=== PATIENT | female | born 1980 | race Caucasian/White ===

== ENCOUNTER 2016-07-24 17:12 | Emergency (ER) | payer BC, MEDICAID ==
--- NOTE | 2016-07-24 18:43 | RAD ---
INDICATION: Left ankle injury. TECHNIQUE: 3 views of the left ankle were obtained. FINDINGS: Soft tissue swelling is noted along the anterolateral aspect of the ankle. No fracture is seen. Joint spaces appear maintained. IMPRESSION: SOFT TISSUE SWELLING, NO FRACTURE IS SEEN.
--- NOTE | 2016-07-24 19:47 | ED ---
Lower Extremity - HPI Summary HPI Summary: PATIENT WITH A HISTORY OF SARCOIDOSIS PRESENTS TO ED WITH CC OF LEFT ANKLE PAIN AFTER MISSING A STEP AND ROLLING ANKLE. SHE DENIES HITTING HER HEAD OR LOC. SHE STATES SHE HEARD SEVERAL STRANGE SOUNDS AND FELT LIKE IT BROKE. SHE HAS NEVER INJURED THE ANKLE BEFORE. THE PAIN IS DISCRETE AT THE LEFT LATERAL ANKLE OVER THE ATFL AND RADIATES UP 2-3 INCHES ABOVE THE ANKLE JOINT. DENIES OTHER LOWER EXTREMITY AND KNEE PAIN. SHE NOTES SOME NUMBNESS AND TINGLING SINCE THE INJURY IN THE TOES STATING ITS A "SLIGHT DECREASE IN FEELING." SHE STATES SHE IS UNABLE TO TAKE ASPIRIN, NSAIDS AND TYLENOL D/T SARCOIDOSIS AND PREVIOUS ANAPHYLACTIC REACTION TO A FLU MEDICATION WHICH CONTAINED ASPIRIN AND WAS THEN TO NEVER HAVE THOSE MEDICATIONS AGAIN. - History of Current Complaint Chief Complaint: EDExtremityLower Stated Complaint: LT ANKLE INJURY Time Seen by Provider: 07/24/16 18:04 Hx Obtained From: Patient Hx Last Menstrual Period: 03/01/15 Mechanism Of Injury: Fall From A Standing Position Onset of Pain: Immediate Onset/Duration: Minutes Severity Initially: Moderate Severity Currently: Moderate Pain Intensity: 8 Pain Scale Used: 0-10 Numeric Timing: Constant Location: Is Discrete @ - ATFL Character Of Pain: Aching Associated Signs And Symptoms: Positive: Swelling Aggravating Factor(s): Standing, Ambulation, Weight Bearing Alleviating Factor(s): Rest Able to Bear Weight: No - Risk Factors Gout Risk Factors: Negative DVT Risk Factors: Negative Septic Arthritis Risk Factor: Negative - Allergies/Home Medications Allergies/Adverse Reactions: Allergies Allergy/AdvReac Type Severity Reaction Status Date / Time Aspirin Allergy Severe Anaphylatic Verified 09/04/14 19:01 Shock Latex Allergy Severe Rash Verified 09/04/14 19:01 NSAIDs Allergy Severe Anaphylatic Verified 09/04/14 19:01 Shock Caffeine AdvReac Severe Diarrhea Verified 09/04/14 19:01 Chocolate AdvReac Severe Diarrhea Verified 09/04/14 19:01 PMH/Surg Hx/FS Hx/Imm Hx Previously Healthy: Yes Endocrine/Hematology History: Denies: Hx Diabetes, Hx Thyroid Disease Cardiovascular History: Reports: Other Cardiovascular Problems/Disorders - SARCOIDOSIS Denies: Hx Hypertension Respiratory History: Reports: Hx Asthma Denies: Hx Chronic Obstructive Pulmonary Disease (COPD) GI History: Denies: Hx Ulcer - Surgical History Surgery Procedure, Year, and Place: breast cysts removed L breast; clips placed on ovarian tubes 2006. October 29 2013 - reversal of tube clips. mediastinoscopy may 2013 - Immunization History Hx Pertussis Vaccination: No Immunizations Up to Date: No Infectious Disease History: No Infectious Disease History: Denies: Hx Clostridium Difficile, Hx Hepatitis, Hx Human Immunodeficiency Virus (HIV), Hx of Known/Suspected MRSA, Hx Shingles, Hx Tuberculosis, History Other Infectious Disease, Traveled Outside the [place] in Last 30 Days - Social History Occupation: Employed Full-time Lives: With Family Alcohol Use: None Hx Substance Use: No Substance Use Type: Reports: None Hx Tobacco Use: No Smoking Status (MU): Former Smoker Do You Chew or Dip Tobacco: No Have You Smoked in the Last Year: No Review of Systems Constitutional: Negative Eyes: Negative Cardiovascular: Negative Respiratory: Negative Positive: no symptoms reported, see HPI Positive: Arthralgia - LEFT ANKLE PAIN Positive: Other - SWELLING Neurological: Negative Psychological: Normal All Other Systems Reviewed And Are Negative: Yes Physical Exam Triage Information Reviewed: Yes Vital Signs On Initial Exam: Initial Vitals Temp Pulse Resp BP Pulse Ox 97.4 F 86 20 144/93 100 07/24/16 17:16 07/24/16 17:16 07/24/16 17:16 07/24/16 17:16 07/24/16 17:16 Vital Signs Reviewed: Yes Appearance: Positive: Well-Appearing, No Pain Distress, Well-Nourished Skin: Positive: Warm, Skin Color Reflects Adequate Perfusion, Other - SWELLING Eyes: Positive: Normal, LALI, Conjunctiva Clear Neck: Positive: Supple, No Lymphadenopathy Respiratory/Lung Sounds: Positive: Clear to Auscultation, Breath Sounds Present Cardiovascular: Positive: Normal, RRR, Pulses are Symmetrical in both Upper and Lower Extremities Musculoskeletal: Positive: Other - Thorough physical exam was performed, focusing on ankle special tests. Pain on palpation over LEFT lateral aspect and superior aspect of ankle over ATFL and deltoid ligaments. No pain on palpation over medial side. Due to patient pain around injury, physical exam was limited. Unable to perform anterior drawer test or talar tilt test d/t pain. Desir test negative. Limited ROM. Dorsiflexion, great toe extension and plantar flexion intact however limited. No pain on palpation over medial or lateral lower extremity. No pain with knee flexion. Pulses intact bilaterally. No temperature change or pallor noted bilaterally. Ecchymosis and swelling noted on lateral aspect. No lesion or disruption of skin is seen. Unable to bear weight. Neurological: Positive: Normal, Sensory/Motor Intact Psychiatric: Positive: Normal AVPU Assessment: Alert Diagnostics - Vital Signs Vital Signs Temp Pulse Resp BP Pulse Ox 07/24/16 18:12 98.2 F 89 18 136/90 100 07/24/16 17:16 97.4 F 86 20 144/93 100 - Laboratory Lab Statement: Any lab studies that have been ordered have been reviewed, and results considered in the medical decision making process. Lower Extremity Course/Dx - Course Course Of Treatment: Based on [place] [facility] Rules, patient sent to imaging. Xray negative for fracture or other acute findings. Soft tissue swelling noted over the lateral aspect of the ankle. Medial and lateral distal lower extremity without pain and x-rays show no widening of the ankle joint regarding low suspicion for Maisonneuve fx. Ankle was valentina wrapped to patient comfort to allow for immobilization for this period of time. Crutches given. Patient given orthopedic follow up in 5-7 days. Return precautions given. Educated patient regarding ankle injuries and healing time and the possibility of further evaluation and imaging as orthopedist sees fit. Note given to return to work with restrictions. Patient will follow up with Dr. Britton d/t her preference of physician. She is unable to take NSAIDS, TYLENOL AND ASPIRIN d/t allergies and sarcoidosis. Patient encouraged to ice often. - Diagnoses Differential Diagnosis/HQI/PQRI: Positive: Fracture (Closed), Sprain, Strain, Tendonitis Provider Diagnoses: Sprained ankle Discharge - Discharge Plan Condition: Stable Disposition: HOME Patient Education Materials: Ankle Sprain (ED) Forms: *Work Release Referrals: Evan Haji MD [Primary Care Provider] - Rosanne Britton MD [Medical Doctor] - Additional Instructions: Crutches for ambulation given. Ibuprofen 600mg three times daily with meals for pain. Follow up with orthopedic physician in 5-7 days. If numbness, tingling, decreased sensation, increased pain, temperature changes or pallor noted in toes, come back to ER immediately. Protect the area. For your comfort level, do not bear weight, pull or push until you can injury is somewhat healed. This may involve the need for immobilization or crutches for a period of time. Rest the involved area, but not too long. You may need to be off your injury for some time to allow for healing, however excessive immobilization of joints can lead to stiffness and delay healing time. Early mobilization is encouraged if it is pain-free. Ice. Not directly on the skin. Cover with a towel. Apply ice no more than 30 minutes at a time Compression: You may use and keep an valentina wrap bandage over the injury to decrease swelling. Again, this should be limited and be taken off periodically to encourage early range of motion and mobilization. Elevate: Try to elevate the injured area above the heart whenever possible.
[2016-07-24 19:48] VITALS: BP 136/74
== END 2016-07-24 19:47 | disposition home or self-care (01) ==
LOC: ED 17:12
DX: S93.402A Sprain of unspecified ligament of left ankle, initial encounter (principal); M25.572 Pain in left ankle and joints of left foot; X58.XXXA Exposure to other specified factors, initial encounter; Y93.9 Activity, unspecified; Y92.9 Unspecified place or not applicable
CPT/HCPCS: 99282

== ENCOUNTER 2016-09-22 13:36 | Emergency (ER) | payer BC, MEDICAID ==
[2016-09-22 14:12] VITALS: BP 120/81
--- NOTE | 2016-09-22 14:41 | UC ---
Respiratory Complaint HPI - History of Current Complaint Chief Complaint: UCRespiratory Stated Complaint: SINUS ISSUE Time Seen by Provider: 09/22/16 14:21 Hx Obtained From: Patient Hx Last Menstrual Period: 09/18/16 ?: No Onset/Duration: Gradual Onset - has had allergy symps for 2 weeks , over past 3 days her sinuses have started to feel sore, today facial pressure is really bad and she is blowing out thick dark yellow mucous Severity Initially: Mild Severity Currently: Moderate Aggravating Factors: Recumbent Position - diff to sleep Associated Signs And Symptoms: Positive: Nasal Congestion, Sinus Discomfort - Allergies/Home Medications Allergies/Adverse Reactions: Allergies Allergy/AdvReac Type Severity Reaction Status Date / Time Aspirin Allergy Severe Anaphylatic Verified 09/04/14 19:01 Shock Latex Allergy Severe Rash Verified 09/04/14 19:01 NSAIDs Allergy Severe Anaphylatic Verified 09/04/14 19:01 Shock Caffeine AdvReac Severe Diarrhea Verified 09/04/14 19:01 Chocolate AdvReac Severe Diarrhea Verified 09/04/14 19:01 PMH/Surg Hx/FS Hx/Imm Hx Previously Healthy: Yes - Surgical History Surgical History: Yes Surgery Procedure, Year, and Place: breast cysts removed L breast; clips placed on ovarian tubes 2006. October 29 2013 - reversal of tube clips. mediastinoscopy may 2013 - Family History Known Family History: Positive: None - Social History Occupation: Employed Part-time Lives: With Family Alcohol Use: None Substance Use Type: None Smoking Status (MU): Former Smoker Have You Smoked in the Last Year: No When Did the Patient Quit Smoking/Using Tobacco: 9 YEARS AGO - Immunization History Most Recent Influenza Vaccination: fall 2012 Most Recent Tetanus Shot: 02/22/14 Most Recent Pneumonia Vaccination: none Review of Systems Constitutional: Negative Skin: Negative ENT: Sinus Congestion, Sinus Pain/Tenderness Respiratory: Negative Cardiovascular: Negative Neurovascular: Negative Musculoskeletal: Negative Neurological: Negative Psychological: Negative All Other Systems Reviewed And Are Negative: Yes Physical Exam Triage Information Reviewed: Yes Appearance: Well-Appearing, No Pain Distress, Well-Nourished Vital Signs: Initial Vital Signs Temp 98.1 F 09/22/16 14:10 Pulse 96 09/22/16 14:10 Resp 16 09/22/16 14:10 BP 120/81 09/22/16 14:10 Pulse Ox 99 09/22/16 14:10 Vital Signs Reviewed: Yes ENT: Positive: Pharyngeal erythema, Nasal congestion, Nasal drainage, TMs normal , Other: - thick white PND Respiratory Exam: Normal Cardiovascular Exam: Normal Neurological Exam: Normal Psychological Exam: Normal Skin Exam: Normal UC Diagnostic Evaluation - Laboratory O2 Sat by Pulse Oximetry: 99 Respiratory Course/Dx - Differential Dx/Diagnosis Differential Diagnosis/HQI/PQRI: Sinusitis, Other - URI Provider Diagnoses: sinusitis Discharge - Discharge Plan Condition: Good Disposition: HOME Prescriptions: Cefdinir [Cefdinir 300 MG CAP] 300 mg PO BID #20 cap Patient Education Materials: Sinusitis (ED) Referrals: Evan Haji MD [Primary Care Provider] - 2 Days (recheck if no better) Additional Instructions: drink plenty of fluids take antibiotic as prescribed ibuprofen over the counter as needed for pain
== END 2016-09-22 14:53 | disposition home or self-care (01) ==
LOC: UCEAST 13:36
DX: J32.9 Chronic sinusitis, unspecified (principal); Z88.6 Allergy status to analgesic agent; Z91.040 Latex allergy status; Z87.891 Personal history of nicotine dependence
CPT/HCPCS: 99212; G0463

== ENCOUNTER 2017-03-28 07:44 | Emergency (ER) | payer BC, MEDICAID ==
[2017-03-28 07:54] VITALS: BP 139/90
--- NOTE | 2017-03-28 09:25 | UC ---
Migel Wright Angela, scribed for Kait Espana MD on 03/28/17 at 0801 . General HPI - HPI Summary HPI Summary: This pt is a 36 y/o female presenting to [facility] c/o sinus congestion and lower jaw pain since 03/24/17. Pt additionally reports ear ache, pressure around her right clavicle, right sided neck tenderness, and down the middle of the posterior neck. Pt woke up this morning with a lot of nasal discharge. Denies epistaxis. Pt reports joint pain, not increased from baseline due to sarcoidosis. Denies nausea, vomiting, diarrhea. Last time she had a sinus infection was this past year. She states she usually has sinus infections in the winter time. Allergies to NSAIDs. Has not been on antibiotics recently. - History of Current Complaint Chief Complaint: UCGeneralIllness Stated Complaint: SINUS PRESSURE, CHEST PRESSURE, EAR PAIN Time Seen by Provider: 03/28/17 07:55 Hx Obtained From: Patient Hx Last Menstrual Period: 03/18/17 Onset/Duration: Lasting Days, Still Present Timing: Constant Current Severity: Moderate Associated Signs & Symptoms: Positive: Other - POS: nasal discharge, sinus congestion, lower jaw pain, ear ache, right sided neck tenderness, pain down the middle of the posterior neck. NEG: epistaxis. Negative: Cough, Diarrhea, Nausea, Vomiting - Allergy/Home Medications Allergies/Adverse Reactions: Allergies Allergy/AdvReac Type Severity Reaction Status Date / Time Aspirin Allergy Severe Anaphylatic Verified 03/28/17 07:54 Shock Latex Allergy Severe Rash Verified 03/28/17 07:54 NSAIDs Allergy Severe Anaphylatic Verified 03/28/17 07:54 Shock Caffeine AdvReac Severe Diarrhea Verified 03/28/17 07:54 Chocolate AdvReac Severe Diarrhea Verified 03/28/17 07:54 Home Medications: Home Medications Hydroxychloroquine TAB* [Plaquenil TAB*] 200 mg PO BID 03/28/17 [History Confirmed 03/28/17] PMH/Surg Hx/FS Hx/Imm Hx - Additional Past Medical History Additional PMH: PMHx: sarcoidosis Previously Healthy: Yes Other Endocrine History: DENIES: diabetes Respiratory History: Asthma GI/ History: Other - IBS Other GI/ History: IBS - Surgical History Surgical History: Yes Surgery Procedure, Year, and Place: breast cysts removed L breast; clips placed on ovarian tubes 2006. October 29 2013 - reversal of tube clips. mediastinoscopy may 2013 - Family History Known Family History: Positive: Hypertension - mother Negative: Diabetes - Social History Alcohol Use: Occasionally Substance Use Type: None Smoking Status (MU): Former Smoker Have You Smoked in the Last Year: No When Did the Patient Quit Smoking/Using Tobacco: 9 YEARS AGO - Immunization History Most Recent Influenza Vaccination: Fall 2016 Most Recent Tetanus Shot: 02/22/14 Most Recent Pneumonia Vaccination: none Review of Systems Constitutional: Negative Skin: Negative Eyes: Negative ENT: Ear Ache, Nasal Discharge, Sinus Congestion, Other - NEG: Respiratory: Negative Cardiovascular: Negative Gastrointestinal: Negative Motor: Negative Neurovascular: Negative Musculoskeletal: Other: - lower jaw pain, right sided neck tenderness, and tenderness down the middle of the posterior neck. Neurological: Negative Psychological: Negative All Other Systems Reviewed And Are Negative: Yes Physical Exam Triage Information Reviewed: Yes Appearance: Well-Nourished Vital Signs: Initial Vital Signs Temp 97.9 F 03/28/17 07:46 Pulse 91 03/28/17 07:46 Resp 18 03/28/17 07:46 BP 139/90 03/28/17 07:46 Pulse Ox 100 03/28/17 07:46 Vital Signs Reviewed: Yes Eye Exam: Normal ENT: Positive: Pharyngeal erythema - mild post redness, no sores, Nasal congestion, TM dull - dull au, not red. Eac's ok., Other - nasal mucosa is erythematous, swollen Dental Exam: Other - c/o pain radiating to teeth. Neck: Positive: Supple, Nontender, Other: - enlarged thyroid (pt reports that this is being evaluated by pcp) Respiratory Exam: Normal Respiratory: Positive: Chest non-tender, Lungs clear, Normal breath sounds, No respiratory distress, No accessory muscle use Cardiovascular Exam: Normal Cardiovascular: Positive: RRR, No Murmur, Pulses Normal, Brisk Capillary Refill , Other: - heart rate regular, good general skin colo, good capillary refill Abdominal Exam: Normal Abdomen Description: Positive: Nontender, Soft Bowel Sounds: Positive: Present Musculoskeletal Exam: Normal Musculoskeletal: Positive: Strength Intact Neurological Exam: Normal, Other - nonfocal, grossly intact Psychological Exam: Normal - conversing easily and appropriately Skin Exam: Normal - no visible or reported rash Course/Dx - Course Course Of Treatment: Reviewed medications and recent medical hx with pt. No recent abx. No abx allergies / intolerances. Rx - augmentin. Will restart probiotic. Rx diflucan as needed vag yeast infection. + work note. Questions as posed answered to the best of my ability. - Differential Dx - Multi-Symptom Provider Diagnoses: acute sinusitis Discharge - Discharge Plan Condition: Stable Disposition: HOME Prescriptions: Amoxicillin/Clavulanate TAB* [Augmentin TAB 875*] 875 mg PO BID #20 tab Fluconazole [Diflucan 150 MG (NF)] 150 mg PO DAILY #2 tab Patient Education Materials: Amoxicillin/Clavulanate Potassium (By mouth), Sinusitis (ED) Forms: *Work Release Referrals: Evan Haji MD [Primary Care Provider] - Additional Instructions: Your blood pressure was elevated during today's visit, 139/90. Please follow up with your primary care provider in 1-2 weeks. Please follow up with your primary care provider in 1-2 weeks. Seek medical attention for worse or new problems in the meantime. Restart your probiotic, especially while taking antibiotic. The documentation as recorded by the Migel diaz Angela accurately reflects the service I personally performed and the decisions made by me, Kait Espana MD.
== END 2017-03-28 08:15 | disposition home or self-care (01) ==
LOC: UCEAST 07:44
DX: J01.90 Acute sinusitis, unspecified (principal); M25.50 Pain in unspecified joint; D86.9 Sarcoidosis, unspecified; Z88.8 Allergy status to other drugs, medicaments and biological substances; Z88.6 Allergy status to analgesic agent; Z91.040 Latex allergy status; Z91.018 Allergy to other foods; Z87.891 Personal history of nicotine dependence
CPT/HCPCS: 99212; G0463

== ENCOUNTER 2017-05-13 20:19 | Emergency (ER) | payer BC, MEDICAID ==
[2017-05-13 20:35] VITALS: BP 135/96
[2017-05-13] MEDS ORDERED: Acetaminophen TAB* 325 MG PO ONE (21:05)
--- NOTE | 2017-05-13 22:10 | UC ---
Radha Wright Gabriel, scribed for Srinivas Curiel MD on 05/13/17 at 2107 . Throat Pain/Nasal Vinay HPI - HPI Summary HPI Summary: This patient is a 36 year old F presenting to [facility] with a chief complaint of a sore throat since 05-11-17. The patient rates the pain 6/10 in severity. Patient reports congestion, ear pain, neck pain, chills, and myalgia. Patient denies diarrhea and urinary symptoms. Positive exposure to flu. - History of Current Complaint Chief Complaint: UCGeneralIllness Stated Complaint: SORE THROAT Time Seen by Provider: 05/13/17 20:59 Hx Obtained From: Patient Hx Last Menstrual Period: 03/18/17 Onset/Duration: Lasting Days, Still Present Severity: Moderate Pain Intensity: 6 Pain Scale Used: 0-10 Numeric Associated Signs & Symptoms: Positive: Other - congestion, ear pain, neck pain, chills, and myalgia.. Negative: Fever - Allergies/Home Medications Allergies/Adverse Reactions: Allergies Allergy/AdvReac Type Severity Reaction Status Date / Time NSAIDS (Non-Steroidal Allergy Anaphylatic Verified 05/13/17 20:36 Anti-Inflamma Shock Home Medications: Home Medications Hydroxychloroquine TAB* [Plaquenil TAB*] 200 mg PO BID 05/13/17 [History Confirmed 05/13/17] PMH/Surg Hx/FS Hx/Imm Hx Other History Of: Negative For: HIV, Hepatitis B - Surgical History Surgical History: Yes Surgery Procedure, Year, and Place: breast cysts removed L breast; clips placed on ovarian tubes 2006. October 29 2013 - reversal of tube clips. mediastinoscopy may 2013 - Family History Known Family History: Positive: Hypertension - mother Negative: Diabetes, Respiratory Disease, Seizure Disorder - Social History Lives: With Family Alcohol Use: Occasionally Substance Use Type: None Smoking Status (MU): Former Smoker Have You Smoked in the Last Year: No When Did the Patient Quit Smoking/Using Tobacco: 9 YEARS AGO - Immunization History Most Recent Influenza Vaccination: Fall 2016 Most Recent Tetanus Shot: 02/22/14 Most Recent Pneumonia Vaccination: none Review of Systems Constitutional: Chills ENT: Sore Throat, Ear Ache, Sinus Congestion Musculoskeletal: Myalgia, Other: - neck pain All Other Systems Reviewed And Are Negative: Yes Physical Exam Triage Information Reviewed: Yes Vital Signs: Initial Vital Signs Temp 97.5 F 05/13/17 20:31 Pulse 86 05/13/17 20:31 Resp 18 05/13/17 20:31 BP 135/96 05/13/17 20:31 Pulse Ox 100 05/13/17 20:31 Vital Signs Reviewed: Yes - Additional Comments General: mildly ill appearing, no pain distress Skin: warm, color reflects adequate perfusion, dry Head: normal Eyes: EOMI, LALI ENT: Posterior pharynx erythema Neck: supple, nontender Respiratory: CTA, breath sounds present Cardiovascular: RRR Abdomen: soft, nontender Bowel: present Musculoskeletal: normal, strength/ROM intact Neurological: normal, sensory/motor intact, A&O x3 Psychological: affect/mood appropriate Throat Pain/Nasal Course/Dx - Course Course Of Treatment: DISCUSSED RESULTS WITH PATIENT; SYMPTOMATIC TREATMENT AT THIS TIME. F/U PMD; RECHECKED IF WORSE. Assessment/Plan: Allergies noted. Medications reviewed. BP noted and advised to follow up with PCP. - Differential Dx/Diagnosis Provider Diagnoses: VIRAL ILLNESS. Elevated blood pressure without history of hypertension. Discharge - Discharge Plan Condition: Stable Disposition: HOME Patient Education Materials: Viral Syndrome (ED) Referrals: Evan Haji MD [Primary Care Provider] - Additional Instructions: FOLLOW UP WITH YOUR DOCTOR. GET RECHECKED FOR ANY WORSENING OF YOUR CONDITION OR QUESTIONS OR CONCERNS. Your blood pressure was elevated during todays visit; please follow up with your primary care provider within a week for further evaluation. The documentation as recorded by the Radha diaz Gabriel accurately reflects the service I personally performed and the decisions made by me, Srinivas Curiel MD.
== END 2017-05-13 22:31 | disposition home or self-care (01) ==
LOC: UCEAST 20:19
DX: B34.9 Viral infection, unspecified (principal); R03.0 Elevated blood-pressure reading, without diagnosis of hypertension; Z20.828 Contact with and (suspected) exposure to other viral communicable diseases; Z87.891 Personal history of nicotine dependence
CPT/HCPCS: 87502; 87651; 99212; A9270-GY; G0463

== ENCOUNTER 2017-07-23 09:12 | Day surgery (SDC) | payer BC, MEDICAID ==
--- NOTE | 2017-07-17 14:39 | HP ---
AMENDED REPORT NOW INCLUDES COSIGNER DESIGNATION PREOPERATIVE HISTORY AND PHYSICAL: DATE OF ADMISSION/SURGERY: 07/23/17 DATE OF OFFICE VISIT/ENCOUNTER: 07/17/17 ATTENDING SURGEON: Rosanne Britton MD * (DICTATED BY MARSHALL MARTINEZ) PROCEDURE: Left wrist de Quervain's release. CHIEF COMPLAINT: Left wrist pain. HISTORY OF PRESENT ILLNESS: This is a 36-year-old female, who works at [employer]. She is complaining of pain in the left wrist that has been ongoing for several years now, she thinks even over 10 years. This pain has gradually gotten markedly worse and is quite bothersome. She did have cortisone injection in the past, which was helpful; however, the symptoms returned. The patient could not take NSAIDs or aspirin. She is interested at this point in pursuing surgical intervention for this problem and has consented to proceed with the left wrist de Quervain's release. PAST MEDICAL HISTORY: 1. Sleep apnea - CPAP. 2. Irritable bowel syndrome. 3. GERD. 4. Sarcoidosis. 5. Polycystic ovaries. PAST SURGICAL HISTORY: 1. Tubal ligation. 2. Tubal ligation reversal. 3. Breast lumpectomy. CURRENT MEDICATIONS: 1. Symbicort 160/4.5 mcg/act 2 puffs twice a day. 2. Turmeric 450 mg 1 tab daily. ALLERGIES: 1. ASPIRIN causes anaphylactic shock. 2. NSAIDs, reaction unknown. 3. LATEX. 4. CAFFEINE. FAMILY MEDICAL HISTORY: Hypertension and high cholesterol. SOCIAL HISTORY: The patient is employed at [employer]. She was a former smoker. She quit about 10 years ago, prior to that she smoked for just a year and a half. She recreational drug use. She does drink alcohol on occasion. REVIEW OF SYSTEMS: General: Negative for fevers, chills, or night sweats. No known anesthesia problems. HEENT: Negative for headache, lightheadedness, or syncopal episodes. Integumentary: Negative for abrasions, lesions, or open wounds. Cardiothoracic: Negative for hypertension, chest pain, palpitations, or edema. Pulmonary: Positive for occasional shortness of breath with exertion related to her sarcoidosis. Negative for chronic cough or COPD. GI: Negative for nausea, vomiting, diarrhea, constipation, or GERD. : Negative for nocturia, urinary frequency, urgency, history of UTIs, and kidney problems. Musculoskeletal: Positive for current complaint. Negative for chronic or intermittent back pain. Neurologic: Negative for paresthesias, numbness, history of seizure, stroke, or epilepsy. Endocrine: Negative for diabetes and thyroid issues. Hematologic: Negative for easy bruising, anemia, excessive bleeding, history of DVT. Infectious Disease: Negative for history of MRSA, hepatitis C, HIV. PHYSICAL EXAMINATION GENERAL: Well-developed, well-nourished, 36-year-old female, in no acute distress. VITAL SIGNS: Height 5 feet 4 inches, weight 206 pounds, pulse rate 102, and blood pressure 128/62. HEENT: Normocephalic and atraumatic. Pupils are equal, round, and reactive to light and accommodation. Extraocular movements are intact. Throat is clear. NECK: Supple. No palpable lymph nodes. PULMONARY: Lungs are clear to auscultation bilaterally. No wheezes, rales, or rhonchi. CARDIOVASCULAR: Regular rate and rhythm. S1 and S2. No murmurs, rubs, or gallops. No edema. ABDOMEN: Positive bowel sounds, soft and nontender. NEUROLOGIC: Alert and oriented x3. Cranial nerves II through XII are intact. Sensation is intact to light touch. PERIPHERAL VASCULAR: 2+ radial and ulnar pulses. Negative Chemo test. MUSCULOSKELETAL: On exam of the patient's left wrist, there is a small area of mild swelling over the first dorsal compartment and tenderness to palpation in that area. She has marked tenderness at the radial styloid and a positive Lauren's test. Pain with wrist motion and flexion and extension. She has good motion in her fingers and neurovascular function is intact. IMAGING STUDIES: X-rays, AP, lateral, and oblique, of the left wrist are normal. IMPRESSION: Left wrist de Quervain's tenosynovitis. PLAN: The patient is scheduled to undergo a left wrist de Quervain's release with Dr. Britton on 07/23/17. She will follow up in the office approximately 10 days after surgery for suture removal. A prescription for Ultracet was e- scribed to the patient's pharmacy for postoperative pain management. MARSHALL MARTINEZ [id number]/[facility] #: [id number] [facility]
[~2017-07-23 09:12] MED LIST: Buffered Lidocaine 0.9% SYRIN* 5 ML/SYR SYRINGE INTRADERM ONE; Famotidine TAB* 20 MG ONE; Famotidine TAB* 20 MG PO ONE
[2017-07-23] MEDS ORDERED: Naloxone* 0.4 MG/ML 1 ML VIAL IV PRN (09:24)
[2017-07-23] MEDS ORDERED: PROCHLORPERAZINE INJ 5 MG/ML 2 ML VIAL IV PRN (09:24)
[2017-07-23] MEDS ORDERED: HYDROcodone/ACETAMIN 5-325 MG* 1 TAB PO PRN (09:24)
[2017-07-23] MEDS ORDERED: fentaNYL* 50 MCG/ML 2 ML VIAL (100 MCG VIAL) IV PRN (09:24)
[2017-07-23] MEDS ORDERED: oxyCODONE TAB* 5 MG TAB PO PRN (09:24)
[2017-07-23] MEDS ORDERED: Acetaminophen TAB* 325 MG PO PRN (09:24)
[2017-07-23] MEDS ORDERED: Lidocaine 1% INJ* 10 MG/ML 30 ML SDV ONE (09:37)
[2017-07-23] MEDS ORDERED: Propofol* 10 MG/ML 20 ML BTL IV PUSH ONE (09:53)
[2017-07-23] MEDS ORDERED: Midazolam* 1 MG/ML 5 ML VIAL (5 MG) ONE (09:53)
[2017-07-23] MEDS ORDERED: Lidocaine 2% PF * 5 ML VIAL ONE (09:53)
[2017-07-23] MEDS ORDERED: fentaNYL* 50 MCG/ML 2 ML VIAL (100 MCG VIAL) ONE (09:53)
[2017-07-23 11:51] VITALS: BP 114/83
--- NOTE | 2017-07-23 12:06 | OP ---
CC: Dr. Britton* OPERATIVE REPORT: DATE OF OPERATION: 07/23/17 - BAYLEE DATE OF : 82 SURGEON: Rosanne Britton MD TOOL DRAWING CHECKER: MARSHALL Packer ANESTHESIOLOGIST: Nisreen Montaño MD ANESTHESIA: Local MAC. PRE-OP DIAGNOSIS: Left de Quervain's tenosynovitis. POST-OP DIAGNOSIS: Left de Quervain's tenosynovitis. OPERATIVE PROCEDURE: Left de Quervain's release. INDICATIONS: John is a 36-year-old female, who has a painful tendinitis of her left wrist. She has failed conservative treatment with cortisone injection, presents now for de Quervain's release. ESTIMATED BLOOD LOSS: Zero. TOURNIQUET TIME: About 10 minutes. DESCRIPTION OF PROCEDURE: The patient was brought to the operating room, was given a sedation anesthetic and a local infiltration of 10 cc of 1% plain lidocaine at the radial styloid of her left wrist. Skin of her left hand and forearm was prepped and draped in the usual sterile fashion. The hand and forearm were exsanguinated and the tourniquet elevated to 250 mmHg. A longitudinal incision was made centered at the radial styloid and we dissected through the subcutaneous tissue. Branches of the radial sensory nerve were located and then retracted by the surgical services asst, Katarina Bhatt. The first dorsal compartment was incised longitudinally, completely releasing the APL and EPB tendons, which were in separate compartments. The wound was irrigated and the skin edges were reapproximated with 4-0 nylon suture. The wound was dressed with Xeroform, 4x4, Webril, and an Enrico wrap. The patient tolerated the procedure well and was brought to the recovery room in good condition. [id number]/[facility] #: [id number] [facility]
== END 2017-07-23 11:40 | disposition home or self-care (01) ==
LOC: OREAST 09:12
PROVIDERS: ATTEND Orthopaedic Surgery
DX: M65.4 Radial styloid tenosynovitis [de Quervain] (principal); G47.33 Obstructive sleep apnea (adult) (pediatric); J45.909 Unspecified asthma, uncomplicated; K58.9 Irritable bowel syndrome, unspecified; K21.9 Gastro-esophageal reflux disease without esophagitis; D86.9 Sarcoidosis, unspecified
CPT/HCPCS: 81025; A9270-GY; J2250; J2704; J3010

== ENCOUNTER 2017-08-01 07:34 | Emergency (ER) | payer BC, MEDICAID ==
--- OUTSIDE RECORDS SUMMARY | 2017-08-01 07:44 | XMS REPORT ---
:1980 External Reference #:[id number] Author Organization [facility] Address [address] [address] Phone [phone] Care Team Providers Name Role Phone Evan Haji MD Primary Care Physician Unavailable Payers Type Date Identification Numbers Payment Provider Subscriber Commercial Policy Number: [id number] [employer] John Solorzano Group Number: [id number] [address] [address] PayID: [id number] [place] [address] Medigap Part B Policy Number: [id number] Medicaid John Solorzano Group Name: 1 [address] PayID: [id number] [place] [address] Problems Date Description Provider Status Onset: 06/02/2015 Disturbance in sleep behavior Margie Alfaro MD Active Onset: 06/02/2015 Sarcoidosis Margie Alfaro MD Active Onset: 06/02/2015 Obesity Margie Alfaro MD Active Onset: 06/23/2015 Obstructive sleep apnea syndrome Margie Alfaro MD Active Family History Date Family Member(s) Problem(s) Comments Father due to at age 53 head trauma () Mother Hypertension Siblings 1 sister hypothyroid Siblings 1 Healthy Brother Social History Type Date Description Comments Marital Status Lives With Children 4 children Lives With 2 cats Lives With 1 dog Occupation Currently Working 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 Cigarette Use Former Cigarette Smoker ETOH Use Occasionally consumes alcohol Smoking Patient is a former smoker Recreational Drug Use Denies Drug Use Daily Caffeine Occasional soda Exercise Type/Frequency Exercises regularly Caring for 2 year old Allergies, Adverse Reactions, Alerts Date Description Reaction Status Severity Comments 06/02/2015 Aspirin active 06/02/2015 Latex active 06/02/2015 NSAIDs active 06/02/2015 Caffeine active Medications Medication Date Status Form Strength Qnty SIG Indications Ordering Provider Tramadol Active Tablets 37.5-325mg 15tabs 1 tab by Rosanne Hydrochloride 018 mouth Gunner Britton /Acetaminophe every 4-6 n hours as needed pain Symbicort Active Aerosol 160-4.5mcg/ 2 puff Unknown 016 Act twice a day Turmeric Active Capsules 450mg 1 by Unknown 016 mouth every day One Hx Tablets 27-0.8mg 1 by Unknown Daily 016 - mouth every day 016 Magnesium Hx Capsules 400mg 1 by Unknown 016 - mouth every day 016 Fish Oil Hx Capsules 600mg 1 by Unknown 016 - mouth every day 016 Probiotic Hx Capsules 1 by Unknown 016 - mouth every day 017 Fenugreek Hx Capsules 520mg 1 by Unknown Blood Sugar 016 - mouth Health daily 016 Plaquenil Hx Tablets 200mg 1 by Unknown 000 - mouth every day 017 for 1 week then 2 by mouth daily ongoing Medications Administered in Office Medication Date Status Form Strength Qnty SIG Indications Ordering Provider Depomedrol Administered Injection Rosanne 40MG So Britton M.D. Immunizations CPT Code Status Date Vaccine Lot # [id number] Given 06/02/2015 Influenza Virus 3Yrs & Over Vital Signs Date Vital Result Comment 07/17/2017 Height 64 inches 5'4" Weight 206.00 lb Heart Rate 102 /min BP Systolic 128 mmHg BP Diastolic 62 mmHg Respiratory Rate 16 /min Body Temperature 97.6 F Pain Level 3 BMI (Body Mass Index) 35.4 kg/m2 06/20/2017 Height 64 inches 5'4" Weight 197.00 lb Heart Rate 82 /min BP Systolic Sitting 132 mmHg Lue large cuff BP Diastolic Sitting 84 mmHg Lue large cuff Respiratory Rate 14 /min O2 % BldC Oximetry 98 % On Ra BMI (Body Mass Index) 33.8 kg/m2 12/20/2016 Height 64 inches 5'4" Weight 193.00 lb Heart Rate 101 /min BP Systolic Sitting 120 mmHg BP Diastolic Sitting 72 mmHg Respiratory Rate 16 /min Pain Level 0 O2 % BldC Oximetry 97 % BMI (Body Mass Index) 33.1 kg/m2 11/28/2016 Height 64 inches 5'4" Weight 194.00 lb Heart Rate 80 /min BP Systolic 118 mmHg BP Diastolic 80 mmHg Respiratory Rate 16 /min Pain Level 8 BMI (Body Mass Index) 33.3 kg/m2 08/16/2016 Height 64 inches 5'4" Weight 203.00 lb Heart Rate 77 /min BP Systolic 115 mmHg BP Diastolic 76 mmHg Body Temperature 98.4 F BMI (Body Mass Index) 34.8 kg/m2 07/25/2016 Height 64 inches 5'4" Weight 203.00 lb Heart Rate 102 /min BP Systolic 123 mmHg BP Diastolic 87 mmHg Body Temperature 97.9 F BMI (Body Mass Index) 34.8 kg/m2 04/16/2016 Height 64 inches 5'4" Weight 206.00 lb Heart Rate 84 /min BP Systolic 126 mmHg BP Diastolic 74 mmHg Respiratory Rate 14 /min O2 % BldC Oximetry 99 % BMI (Body Mass Index) 35.4 kg/m2 11/15/2015 Height 64 inches 5'4" Weight 206.00 lb Heart Rate 84 /min BP Systolic 124 mmHg BP Diastolic 68 mmHg Respiratory Rate 14 /min O2 % BldC Oximetry 98 % BMI (Body Mass Index) 35.4 kg/m2 08/15/2015 Height 64 inches 5'4" Weight 202.00 lb Heart Rate 88 /min BP Systolic 110 mmHg BP Diastolic 72 mmHg Respiratory Rate 14 /min O2 % BldC Oximetry 99 % BMI (Body Mass Index) 34.7 kg/m2 06/02/2015 Height 64 inches 5'4" Weight 202.50 lb Heart Rate 90 /min BP Systolic 122 mmHg BP Diastolic 80 mmHg Respiratory Rate 14 /min O2 % BldC Oximetry 99 % BMI (Body Mass Index) 34.8 kg/m2 Neck Circumference in inches 15 Results Description No Information Procedures Date CPT Code Description Status 11/28/2016 99618 Inject Tendon Sheath Or Ligament Aponeurosis Eg Plantar Completed Fascia 09/29/2015 56759 Holter Monitor Review (24 hr)dr rivero & interp Completed only 09/28/2015 87777 ECG Monitor/Recording W/Visual Superimposition Scanning Completed 06/10/2015 33564 Sleep Study Unattended,HRT Rate,Oxygen Sat,Resp Completed Effort/Airflow 04/04/2015 83805 Diffusing Capacity Completed 04/04/2015 63601 Plethysmography Determination Lung Volumes & Per Completed Airway Resist 04/04/2015 48965 Spirometry Incl Graphic Record Completed Encounters Type Date Location Provider CPT E/M Dx Office Visit 06/20/2017 [place] [address] G47.33 1:45p [facility] D86.9 E66.09 Office Visit 12/20/2016 3:15p [place] [address] G47.33 [facility] [employer] D86.9 E66.09 Office Visit 11/28/2016 1:45p [facility] Rosanne Britton 47028 M65.4 Of C.MYisselA. MDenny Office Visit 08/16/2016 2:00p [facility] Rosanne Britton 04991 S93.412D Of C.DeepaA. MDenny Office Visit 07/25/2016 11:15a [facility] Rosanne Britton 67026 S93.412A Of C.M.A. MDenny Office Visit 04/16/2016 1:45p [facility] [place] [address] G47.33 [facility] D86.9 E66.09 Office Visit 11/15/2015 2:30p Pul[facility]ology [place] [address] G47.33 [facility] [employer] D86.9 E66.09 Office Visit 08/15/2015 3:30p Pulmonology [place] [address] G47.33 [facility] [employer] E66.09 Office Visit 06/23/2015 11:30a Pulmonology [place] [address] G47.33 [facility] [employer] E66.09 D86.9 Office Visit 06/02/2015 11:00a [place] [address] G47.9 [facility] [employer] D86.9 E66.09 Plan of Care Future Appointment(s):08/01/2017 2:30 pm - Rosanne Britton M.D. at [facility].07/23/2017 8:00 am - TREMAINE Packer at [facility].07/23/2017 8:00 am - Rosanne Britton M.D. at [facility]..12/26/2017 1:45 pm - Margie Alfaro MD at [facility]07/17/2017 - Katarina Bhatt [id number]-[id number] Radial styloid tenosynovitis [de Quervain]Follow up:Follow up: 10-14 days postop
[2017-08-01 07:48] VITALS: BP 152/100
[2017-08-01] MEDS ORDERED: Albuterol/Ipratropium NEB.SOL* Albuterol 2.5 MG/Ipratropium 0.5 MG 3 ML INH ONE (08:04)
--- NOTE | 2017-08-01 08:22 | UC ---
Migel Wright Angela, scribed for Tricia Ford MD on 08/01/17 at 0805 . General HPI - HPI Summary HPI Summary: This pt is a 36 y/o female presenting to [facility] c/o headache, sinus congestion and pain, rhinorrhea, cough x5 days. She has hx of sarcoidosis affecting her lungs. Pt additionally reports feeling warm, ears popping, wheezing, throat tickle, post nasal discharge, palpitations. Her symptoms are aggravated with exertion and feels SOB. Pt also states that she is unable to bring anything up with coughing and she has lost her voice. Denies fever, nausea, vomiting, rash, chest pain. Denies sick contacts. She has tried prednisone "a long time ago" for asthma and had relief. Allergic to aspirin, NSAIDS, latex. Patients medication reviewed this visit. - History of Current Complaint Chief Complaint: UCGeneralIllness Stated Complaint: HEADACHE LOSS OF VOICE Time Seen by Provider: 08/01/17 07:44 Hx Obtained From: Patient Hx Last Menstrual Period: 2 weeks Onset/Duration: Lasting Days, Still Present Timing: Constant Current Severity: None Pain Intensity: 0 Aggravating: nothing Alleviating: nothing Associated Signs & Symptoms: Positive: Cough, Headache, SOB, Other - POS: feeling warm, discomfort in ears, wheezing, throat tickle, post nasal discharge , palpitations. NEG: rash. Negative: Fever, Nausea, Vomiting - Allergy/Home Medications Allergies/Adverse Reactions: Allergies Allergy/AdvReac Type Severity Reaction Status Date / Time aspirin Allergy ANAPHYLACTI Verified 08/01/17 07:48 C caffeine Allergy STOMACH Verified 08/01/17 07:48 ISSUES latex Allergy SKIN Verified 08/01/17 07:48 BLISTERS AND PEELS NSAIDS (Non-Steroidal Allergy Anaphylatic Verified 08/01/17 07:48 Anti-Inflamma Shock Perfume [Fragrance] Allergy BREATHING Verified 08/01/17 07:48 ISSUES Home Medications: Home Medications Loratadine 1 tab PO DAILY 08/01/17 [History Confirmed 08/01/17] PMH/Surg Hx/FS Hx/Imm Hx - Additional Past Medical History Additional PMH: PMHx: sarcoidosis Previously Healthy: Yes Other Endocrine History: sarcoid Respiratory History: Asthma Other History Of: Negative For: HIV, Hepatitis B - Surgical History Surgical History: Yes Surgery Procedure, Year, and Place: breast cysts removed L breast; clips placed on ovarian tubes 2006. October 29 2013 - reversal of tube clips. mediastinoscopy may 2013. COLONOSCOPY AND EGD - Family History Known Family History: Positive: Hypertension - mother Negative: Diabetes, Respiratory Disease, Seizure Disorder - Social History Occupation: Employed Full-time Lives: With Family Alcohol Use: Occasionally Substance Use Type: None Smoking Status (MU): Former Smoker Amount Used/How Often: 1/2 - 1 PPD X 1.5 YEARS Have You Smoked in the Last Year: No When Did the Patient Quit Smoking/Using Tobacco: 9 YEARS AGO - Immunization History Most Recent Influenza Vaccination: Fall 2016 Most Recent Tetanus Shot: 02/22/14 Most Recent Pneumonia Vaccination: none Review of Systems Constitutional: Other - NEG: fever. POS: feeling warm Skin: Negative Eyes: Negative ENT: Sore Throat, Nasal Discharge, Sinus Congestion, Sinus Pain/Tenderness, Other - POS: ear discomfort Respiratory: Shortness Of Breath, Cough Cardiovascular: Palpitations, Other - DENIES: chest pain Gastrointestinal: Negative Genitourinary: Negative Motor: Negative Neurovascular: Negative Musculoskeletal: Negative Neurological: Headache Psychological: Negative All Other Systems Reviewed And Are Negative: Yes Physical Exam Triage Information Reviewed: Yes Appearance: Well-Appearing, No Pain Distress, Well-Nourished, Other: - congested Vital Signs: Initial Vital Signs Temp 97.7 F 08/01/17 07:42 Pulse 85 08/01/17 07:42 Resp 18 08/01/17 07:42 BP 152/100 08/01/17 07:42 Pulse Ox 100 08/01/17 07:42 Vital Signs Reviewed: Yes Eye Exam: Normal Eyes: Positive: Conjunctiva Clear ENT: Positive: Pharynx normal, Nasal congestion, TMs normal, Sinus tenderness, Uvula midline Dental Exam: Normal Neck exam: Normal Neck: Positive: Supple, Nontender, No Lymphadenopathy Respiratory Exam: Normal Respiratory: Positive: Chest non-tender, No respiratory distress, No accessory muscle use, Wheezing - few scattered wheeze + cough Cardiovascular Exam: Normal Cardiovascular: Positive: RRR, No Murmur, Pulses Normal Abdominal Exam: Normal Abdomen Description: Positive: Nontender, No Organomegaly, Soft Bowel Sounds: Positive: Present Musculoskeletal Exam: Normal Neurological Exam: Normal Neurological: Positive: Alert Psychological Exam: Normal Psychological: Positive: Normal Response To Family Skin Exam: Normal Diagnostics - Radiology Chest XR Xray Interpretation: No Acute Changes - IMPRESSION: No interval change in the appearance of the chest. Dr. Ford has reviewed this radiology report. Radiology Interpretation Completed By: Radiologist Re-Evaluation - Re-Evaluation First Eval Re-Evaluation Time: 09:15 Change: Improved Comment: Pt is feeling better. On re-examination, her lungs are clear to auscultation. Course/Dx - Course Course Of Treatment: Blood pressure noted and patient informed to follow up with PCP. - Differential Dx - Multi-Symptom Provider Diagnoses: sinusitis. bronchitis Discharge - Sign-Out/Discharge Documenting (check all that apply): Discharge/Admit/Transfer - Discharge - Discharge Plan Condition: Stable Disposition: HOME Prescriptions: Albuterol HFA INHALER* [Ventolin HFA Inhaler*] 1 puff INH Q4H PRN #1 mdi PRN Reason: wheeze Amoxicillin PO (*) [Amoxicillin 875 MG (*)] 875 mg PO BID #20 tab Fluconazole [Diflucan 150 MG (NF)] 150 mg PO ONCE PRN #1 tab PRN Reason: yeast infection predniSONE TAB* [Deltasone TAB*] 40 mg PO DAILY #8 tab Patient Education Materials: Sinusitis (ED) Forms: *Gen. Provider Communication, *Work Release Referrals: Evan Haji MD [Primary Care Provider] - Additional Instructions: - Stay well hydrated. Drink plenty of non-alcoholic, non-caffinated beverages. - Okay to take Tylenol every 6 hours for pain or fever. Take with food. Do NOT take for more than 4-5 days. - These infections are spread by secretions - do NOT share eating or drinking utensils - clean items you share with other people such as cell phones, computer mouse, TV remote, computer tablets,etc. Once you have been antibiotics for 2 days, change your toothbrush and your pillowcase. - get plenty of restful sleep - humidify the air in the room where you sleep - boil water, run a hot steam shower, vaporizer, cups of water by heat register - okay to take over the counter decongestant and cough medication - use nasal spray as prescribed - take prednisone daily as prescribed. Hold your symbicort on the days you take prednisone - Use albuterol inhaler - 2 puffs every 4 hours today and tomorrow, then every 4 hours as needed - contact your doctor or return with questions or concerns - Billing Disposition and Condition Condition: STABLE Disposition: HOME The documentation as recorded by the Migel diaz Angela accurately reflects the service I personally performed and the decisions made by me, Tricia Ford MD.
--- NOTE | 2017-08-01 08:54 | RAD ---
INDICATION: Cough. History of sarcoidosis COMPARISON: A 2013 TECHNIQUE: PA and lateral dual-energy views were obtained. FINDINGS: Bones/Soft Tissues: There are no acute bony findings. Cardiomediastinal: The cardiomediastinal silhouette is unchanged. Lungs: There are no infiltrates. The interstitium appears normal Pleura: There are no pleural effusions. Other: None IMPRESSION: NO INTERVAL CHANGE IN THE APPEARANCE OF THE CHEST.
== END 2017-08-01 09:36 | disposition home or self-care (01) ==
LOC: UCEAST 07:34
DX: R51 Headache (principal); R09.81 Nasal congestion; J34.89 Other specified disorders of nose and nasal sinuses; R05 Cough; R03.0 Elevated blood-pressure reading, without diagnosis of hypertension; J45.909 Unspecified asthma, uncomplicated; Z87.09 Personal history of other diseases of the respiratory system; Z88.6 Allergy status to analgesic agent; Z91.040 Latex allergy status; Z87.891 Personal history of nicotine dependence
CPT/HCPCS: 71046; 87651; 99212; A9270-GY; G0463

== ENCOUNTER 2017-09-21 09:43 | Emergency (ER) | payer BC, MEDICAID ==
--- OUTSIDE RECORDS SUMMARY | 2017-09-21 09:53 | XMS REPORT ---
:1980 External Reference #:[id number] Author Organization [facility] Address [address] [address] Phone [phone] Care Team Providers Name Role Phone Evan Haji MD Primary Care Physician Unavailable Payers Type Date Identification Numbers Payment Provider Subscriber Commercial Policy Number: [id number] [employer] John Solorzano Group Number: [id number] [address] [address] PayID: [id number] [place] [address] Medigap Part B Policy Number: [id number] Medicaid John Solorzano Group Name: 1 [address] PayID: [id number] [place] [address] Problems Date Description Provider Status Onset: 06/02/2015 [...] 1 dog Occupation Currently Working 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 Cigarette Use Former Cigarette Smoker ETOH [...] CPT Code Status Date Vaccine Lot # [id number] Given 06/02/2015 Influenza Virus 3Yrs & Over Vital Signs Date Vital Result Comment 08/22/2017 Height 64 inches 5'4" Weight 206.00 lb Heart Rate 70 /min BP Systolic Sitting 138 mmHg BP Diastolic Sitting 70 mmHg Respiratory Rate 16 /min Body Temperature 98.0 F Pain Level 0 BMI (Body Mass Index) 35.4 kg/m2 08/01/2017 Height 64 inches 5'4" Weight 206.00 lb Heart Rate 82 /min BP Systolic 130 mmHg BP Diastolic 82 mmHg Respiratory Rate 20 /min Body Temperature 99.0 F Pain Level 0 BMI (Body Mass Index) 35.4 kg/m2 07/17/2017 Height 64 inches 5'4" Weight 206.00 [...] Information Procedures Date CPT Code Description Status 07/23/2017 35666 Dequervains-Tendon Sheath Incision/Extensor Completed Sheath,Wrist 07/23/2017 37021 Dequervains-Tendon Sheath Incision/Extensor Completed Sheath,Wrist 11/28/2016 96063 Inject Tendon Sheath Or Ligament Aponeurosis Eg Plantar Completed Fascia 09/29/2015 77548 Holter Monitor Review (24 hr)dr review & interp only Completed 09/28/2015 84237 ECG Monitor/Recording W/Visual Superimposition Scanning Completed 06/10/2015 76425 Sleep Study Unattended,HRT Rate,Oxygen Sat,Resp Completed Effort/Airflow 04/04/2015 37424 Diffusing Capacity Completed 04/04/2015 13051 Plethysmography Determination Lung Volumes & Per Airway Completed Resist 04/04/2015 58236 Spirometry Incl Graphic Record Completed Encounters Type Date Location Provider CPT E/M Dx Office Visit 06/20/2017 [facility] [place] [address] G47.33 1:45p Services Of Business Support Coordinator D86.9 E66.09 Office Visit 12/20/2016 3:15p [facility] [place] [address] G47.33 Services Of Business Support Coordinator D86.9 E66.09 Office Visit 11/28/2016 1:45p [facility] Rosanne Britton 42596 M65.4 Of LaciAYissel Martino Office Visit 08/16/2016 2:00p [facility] Rosanne Britton 10179 S93.412D Of Yara Martino Office Visit 07/25/2016 11:15a [facility] Rosanne Brtiton 84359 S93.412A Of Yara Martino Office Visit 04/16/2016 1:45p [facility] [place] [address] G47.33 Services Of Business Support Coordinator D86.9 E66.09 Office Visit 11/15/2015 2:30p [facility] [place] [address] G47.33 Services Of [facility] D86.9 E66.09 Office Visit 08/15/2015 3:30p Pul[facility]ology [place] [address] G47.33 Services Of [facility] E66.09 Office Visit 06/23/2015 11:30a [facility] [place] [address] G47.33 Services Of [facility] E66.09 D86.9 Office Visit 06/02/2015 11:00a [facility] [place] [address] G47.9 Services Of [facility] D86.9 E66.09 Plan of Care Future Appointment(s):12/26/2017 1:45 pm - Margie Alfaro MD at [facility]08/22/2017 - Katarina Bhatt [facility]-CM65.4 Radial styloid tenosynovitis [de Quervain]Follow up:Follow up: As needed
[2017-09-21 09:55] VITALS: BP 134/77
--- NOTE | 2017-09-21 10:26 | UC ---
Throat Pain/Nasal Vinay HPI - HPI Summary HPI Summary: intermittant sore throat over past 2-3 weeks. seems better in beginning of week and gets worse towards end of week. was treated for sinus infx 3 weeks ago with antibx and prednisone. ST seemed to get worse after stopped meds - History of Current Complaint Chief Complaint: UCGeneralIllness Stated Complaint: SORE THROAT Time Seen by Provider: 09/21/17 10:11 Hx Obtained From: Patient Hx Last Menstrual Period: 08/25/17 ?: No Onset/Duration: Gradual Onset Severity: Moderate Pain Intensity: 5 - Allergies/Home Medications Allergies/Adverse Reactions: Allergies Allergy/AdvReac Type Severity Reaction Status Date / Time aspirin Allergy ANAPHYLACTI Verified 09/21/17 09:56 C caffeine Allergy STOMACH Verified 09/21/17 09:56 ISSUES latex Allergy SKIN Verified 09/21/17 09:56 BLISTERS AND PEELS NSAIDS (Non-Steroidal Allergy Anaphylatic Verified 09/21/17 09:56 Anti-Inflamma Shock Perfume [Fragrance] Allergy BREATHING Verified 09/21/17 09:56 ISSUES PMH/Surg Hx/FS Hx/Imm Hx Previously Healthy: Yes Respiratory History: Asthma, Other - sarcoidosis Other Respiratory History: sarcoidosis GI/ History: Gastroesophageal Reflux Other History Of: Negative For: HIV, Hepatitis B - Surgical History Surgical History: Yes Surgery Procedure, Year, and Place: breast cysts removed L breast; clips placed on ovarian tubes 2006. October 29 2013 - reversal of tube clips. mediastinoscopy may 2013. COLONOSCOPY AND EGD - Family History Known Family History: Positive: None, Hypertension - mother Negative: Diabetes, Respiratory Disease, Seizure Disorder - Social History Occupation: Employed Full-time Lives: With Family Alcohol Use: Occasionally Substance Use Type: None Smoking Status (MU): Former Smoker Amount Used/How Often: 1/2 - 1 PPD X 1.5 YEARS Have You Smoked in the Last Year: No When Did the Patient Quit Smoking/Using Tobacco: 9 YEARS AGO - Immunization History Most Recent Influenza Vaccination: Fall 2016 Most Recent Tetanus Shot: 02/22/14 Most Recent Pneumonia Vaccination: none Review of Systems Constitutional: Negative Skin: Negative Eyes: Negative ENT: Sore Throat, Other - ear congestion on R Respiratory: Negative Cardiovascular: Negative Musculoskeletal: Negative Neurological: Negative All Other Systems Reviewed And Are Negative: Yes Physical Exam Triage Information Reviewed: Yes Appearance: Well-Appearing, No Pain Distress Vital Signs: Initial Vital Signs Temp 98 F 09/21/17 09:53 Pulse 104 09/21/17 09:53 Resp 20 09/21/17 09:53 BP 134/77 09/21/17 09:53 Pulse Ox 99 09/21/17 09:53 Vital Signs Reviewed: Yes Eyes: Positive: Conjunctiva Clear ENT: Positive: Pharynx normal, TM dull Neck exam: Normal Respiratory Exam: Normal Respiratory: Positive: Lungs clear Cardiovascular Exam: Normal Cardiovascular: Positive: RRR Neurological Exam: Normal Psychological Exam: Normal Skin Exam: Normal Skin: Negative: rashes Throat Pain/Nasal Course/Dx - Differential Dx/Diagnosis Differential Diagnosis/HQI/PQRI: Otitis Media, Sinusitis, Tonsillitis, URI, Other - allergies Provider Diagnoses: environmental allergies Discharge - Sign-Out/Discharge Documenting (check all that apply): Discharge/Admit/Transfer - Discharge Plan Condition: Good Disposition: HOME Patient Education Materials: Pharyngitis (ED) Referrals: Evan Haji MD [Primary Care Provider] - 3 Days (if no better) Additional Instructions: start using your sohail that you have at home avoid environmental triggers drink plenty of fluids - Billing Disposition and Condition Condition: GOOD Disposition: Home
== END 2017-09-21 10:45 | disposition home or self-care (01) ==
LOC: UCEAST 09:43
DX: J30.2 Other seasonal allergic rhinitis (principal); J45.909 Unspecified asthma, uncomplicated; D86.0 Sarcoidosis of lung; K21.9 Gastro-esophageal reflux disease without esophagitis; Z88.6 Allergy status to analgesic agent; Z91.040 Latex allergy status; Z82.49 Family history of ischemic heart disease and other diseases of the circulatory system; Z87.891 Personal history of nicotine dependence
CPT/HCPCS: 99211; G0463

== ENCOUNTER 2017-10-15 10:18 | Emergency (ER) | payer BC, MEDICAID ==
[2017-10-15 10:39] VITALS: BP 149/100
--- NOTE | 2017-10-15 10:47 | UC ---
Lower Extremity/Ankle HPI - HPI Summary HPI Summary: 37 y/o female presents to the urgent care c/o left foot and ankle pain s/p tripping on wet cement and twisting it this morning around 0545AM. Pt reports pain is mainly on the front of left toes 3-5 and the foot arch and heel area. She applied ice. Pain is 4/10 specially w/ walking. She has mild numbness on toes. LMP: 09/27/2017 and has been sexually active lately. Pt denies fever, calf pain, chest pain, abdominal pain, N/v/D. Pt is allergic to NSAIDs. - History of Current Complaint Chief Complaint: UCLowerExtremity Stated Complaint: FOOT INJURY Time Seen by Provider: 10/15/17 10:42 Hx Obtained From: Patient Hx Last Menstrual Period: 09/27/2017 ?: No Onset/Duration: Sudden Onset, Lasting Hours - 4hrs Severity Initially: Moderate Severity Currently: Moderate Pain Intensity: 4 Pain Scale Used: 0-10 Numeric Aggravating Factor(s): Ambulation Alleviating Factor(s): Rest, Elevation, Ice Able to Bear Weight: Yes - Risk Factors Gout Risk Factors: Negative DVT Risk Factors: Negative Septic Arthritis Risk Factor: Negative - Allergies/Home Medications Allergies/Adverse Reactions: Allergies Allergy/AdvReac Type Severity Reaction Status Date / Time aspirin Allergy ANAPHYLACTI Verified 10/15/17 10:41 C caffeine Allergy STOMACH Verified 10/15/17 10:41 ISSUES latex Allergy SKIN Verified 10/15/17 10:41 BLISTERS AND PEELS NSAIDS (Non-Steroidal Allergy Anaphylatic Verified 10/15/17 10:41 Anti-Inflamma Shock Perfume [Fragrance] Allergy BREATHING Verified 10/15/17 10:41 ISSUES PMH/Surg Hx/FS Hx/Imm Hx Previously Healthy: Yes Respiratory History: Asthma Other Respiratory History: seasonal allergies Other History Of: Negative For: HIV, Hepatitis B - Surgical History Surgical History: Yes Surgery Procedure, Year, and Place: breast cysts removed L breast; clips placed on ovarian tubes 2006. October 29 2013 - reversal of tube clips. mediastinoscopy may 2013. COLONOSCOPY AND EGD - Family History Known Family History: Positive: Cardiac Disease, Hypertension - mother Negative: Diabetes, Respiratory Disease, Seizure Disorder Family History: dyslipidemia - Social History Occupation: Employed Full-time Lives: With Family Alcohol Use: Occasionally Substance Use Type: None Smoking Status (MU): Former Smoker Amount Used/How Often: 1/2 - 1 PPD X 1.5 YEARS Have You Smoked in the Last Year: No When Did the Patient Quit Smoking/Using Tobacco: 9 YEARS AGO - Immunization History Most Recent Influenza Vaccination: Fall 2016 Most Recent Tetanus Shot: 02/22/14 Most Recent Pneumonia Vaccination: none Review of Systems Constitutional: Negative Skin: Negative Eyes: Negative ENT: Negative Respiratory: Negative Cardiovascular: Negative Gastrointestinal: Negative Genitourinary: Negative Motor: Negative Neurovascular: Negative Musculoskeletal: Decreased ROM - left foot, Other: - left ankle and foot pain s/ p fall Neurological: Numbness - left toes 3-5 Psychological: Negative Is Patient Immunocompromised?: No All Other Systems Reviewed And Are Negative: Yes Physical Exam - Summary Physical Exam Summary: Vital Signs Reviewed: Yes General: well developed, well nourished female, sitting in the examining table w /o any apparent distress Eyes: Positive: Conjunctiva Clear - PERRLA, EOMI, ENT: Positive: Normal ENT inspection, Hearing grossly normal, Pharynx normal, TMs normal Neck: Positive: Supple, Nontender, No Lymphadenopathy Respiratory: Positive: Chest non-tender, Lungs clear, Normal breath sounds, No respiratory distress Cardiovascular: Positive: RRR, No Murmur, Pulses Normal, Brisk Capillary Refill Abdomen Description: Positive: Nontender, No Organomegaly, Soft. Negative: CVA Tenderness (R), CVA Tenderness (L) Bowel Sounds: Positive: Present Musculoskeletal: - LF Ankle: Pt is able to bear weight and ambulate w/ mild limping. The L ankle is without obvious asymmetry or deformity when compared to the R ankle. FROM due to pain. Decrease ROM of left foot due to pain. No swelling in both malleolus, with tenderness to palpation ove the left heel and lateral side of the mid foot. No ecchymosis or bruising observed. mild Tenderness to palpation the 3-5 toes w/ decrease sesantion, no swelling or tecchymosis or bruising over toes. Decrease ROM of these toes. Talar tilt test is negative for ligament laxity to valgus or varus stress. Negative anterior drawer. Peroneal nerve is intact with strong eversion and plantar flexion. Positive sensation over the LF foot and LF ankle, positive pulses, capillary refill intact Neurological Exam: Normal Psychological Exam: Normal Skin: warm and dry Triage Information Reviewed: Yes Vital Signs: Initial Vital Signs Temp 97.9 F 10/15/17 10:29 Pulse 79 10/15/17 10:29 Resp 16 10/15/17 10:29 BP 149/100 10/15/17 10:29 Pulse Ox 99 10/15/17 10:29 Lower Extremity Course/Dx - Course Course Of Treatment: 37 y/o female presents to the urgent care c/o left foot and ankle pain s/p tripping on wet cement and twisting it this morning around 0545AM. Pt reports pain is mainly on the front of left toes 3-5 and the foot arch and heel area. She applied ice. Pain is 4/10 specially w/ walking. She has mild numbness on toes. LMP: 09/27/2017 and has been sexually active lately. Pt denies fever, calf pain, chest pain, abdominal pain, N/v/D. Hx obtained. Pt given Tylenol PO for pain and ice applied for swelling. Pregnacy test: negative. LF ankle and left foot X-ray ordered, Impression:There was no fracture, dislocation, soft tissue swelling or FB noted. Probably a left foot sprain. Pt's foot immobilized with valentina-bandage and given a post-op shoe to avoid flexion.Advised to richard crutches she has at home to avoid weight bearing. Advised RICE, and Rx Tylenol PO for pain, If not improvement of symptoms to f/u with Orthopedic DR Zelaya referral for further evaluation and treatment. Pt's BP is elevated today advised to decrease salt in diet, monitor BP and f/u with PCP for further management.Pt understood and agreed with D/C instructions. - Differential Dx/Diagnosis Differential Diagnosis/HQI/PQRI: Contusion, Fracture (Closed), Sprain, Strain, Tendonitis Provider Diagnoses: 1- Left ankle and foot pain s/p fall. 2- Left foot sprain. 3. Elevated BP w/o Hx of HTN Discharge - Sign-Out/Discharge Documenting (check all that apply): Patient Departure - D/C home - Discharge Plan Condition: Stable Disposition: HOME Prescriptions: Acetaminophen TAB* [Tylenol TAB*] 650 mg PO Q6H PRN #30 tab PRN Reason: Pain Patient Education Materials: Foot Sprain (ED), Low-Sodium Diet (ED) Referrals: Evan Haji MD [Primary Care Provider] - 1 Week Damian Zelaya MD [Medical Doctor] - 1 Week Additional Instructions: 1-Please take medications as directed to alleviate pain and swelling. 2-Please apply ice, keep your foot immobilized with the valentina bandage and post up shoe . Avoid weight bearing using the crutches you have at home 3- Please f/u with Orthopedic Dr Zelaya or your PCP in 1 week is not improvement of symptoms for further evaluation and treatment. 4-Your BP is elevated today. please decrease salt in your diet, monitor BP and if it continues to be elevated please f/u with your PCP for further management - Billing Disposition and Condition Condition: STABLE Disposition: Home
[2017-10-15] MEDS ORDERED: Acetaminophen TAB* 325 MG PO ONE (10:56)
--- NOTE | 2017-10-15 12:03 | RAD ---
Indication: Left ankle pain. 3 views of left ankle demonstrates no fracture. Ankle mortise is intact. The fifth metatarsal is unremarkable. IMPRESSION: No fracture of left ankle is noted.
--- NOTE | 2017-10-15 12:03 | RAD ---
Indication: Left foot pain fall. 3 views of left foot are reviewed. There is no fracture or dislocation. No other bone or joint abnormality is identified. IMPRESSION: No fracture of the left foot is noted.
== END 2017-10-15 12:27 | disposition home or self-care (01) ==
LOC: UCEAST 10:18
DX: M79.672 Pain in left foot (principal); M25.572 Pain in left ankle and joints of left foot; M25.472 Effusion, left ankle; Z88.6 Allergy status to analgesic agent; Z91.018 Allergy to other foods; Z91.040 Latex allergy status; Z91.09 Other allergy status, other than to drugs and biological substances; X50.1XXA Overexertion from prolonged static or awkward postures, initial encounter; Y93.89 Activity, other specified; Y92.9 Unspecified place or not applicable; Z87.891 Personal history of nicotine dependence
CPT/HCPCS: 84702; 99213; A9270-GY; G0463

== ENCOUNTER → 2018-03-26 21:09 | Emergency (ER) | payer BC, MEDICAID ==
[~2018-03-26 21:09] MED LIST changes: -Buffered Lidocaine 0.9% SYRIN* 5 ML/SYR SYRINGE INTRADERM ONE; -Famotidine TAB* 20 MG ONE; -Famotidine TAB* 20 MG PO ONE; +Metoclopramide IV* 5 MG/ML 2 ML VIAL IV SLOW PU ONE; +Potassium Chlor TAB* 20 MEQ TAB.ER PO ONE
--- NOTE | 2018-03-26 21:56 | ED ---
GI/ HPI - HPI Summary HPI Summary: This patient is a 37 year old F presenting to [facility] with a chief complaint of nausea and vomiting since yesterday. She reports headache and chills.The patient states she vomited 4 times today and 7 times yesterday. She states she has not been able to drink anything. She denies diarrhea and fever. She states 3 other family members have had the same illness previously. Patient is 17 weeks . She rates her pain 4/10 in severity. - History of Current Complaint Chief Complaint: EDNauseaVomitDiarrh Time Seen by Provider: 03/26/18 21:34 Stated Complaint: 17.5 WEEKS , EXTREME VOMITING Hx Obtained From: Patient Hx Last Menstrual Period: 09/27/2017 Onset/Duration: Started Days Ago Severity: Moderate Current Severity: Moderate Pain Intensity: 4 Associated Signs and Symptoms: Positive: Nausea, Vomiting, Chills. Negative: Diarrhea, Fever - Allergy/Home Medications Allergies/Adverse Reactions: Allergies Allergy/AdvReac Type Severity Reaction Status Date / Time aspirin Allergy ANAPHYLACTI Verified 03/26/18 21:19 C caffeine Allergy STOMACH Verified 03/26/18 21:19 ISSUES latex Allergy SKIN Verified 03/26/18 21:19 BLISTERS AND PEELS NSAIDS (Non-Steroidal Allergy Anaphylatic Verified 03/26/18 21:19 Anti-Inflamma Shock Perfume [Fragrance] Allergy BREATHING Verified 03/26/18 21:19 ISSUES PMH/Surg Hx/FS Hx/Imm Hx Endocrine/Hematology History: Denies: Hx Diabetes, Hx Thyroid Disease - ENLARGED Cardiovascular History: Reports: Other Cardiovascular Problems/Disorders - SARCOIDOSIS Denies: Hx Hypertension, Hx Pacemaker/ICD Respiratory History: Reports: Hx Asthma - HX OF, Hx Sleep Apnea, Other Respiratory Problems/Disorders - SARCOIDOSIS Denies: Hx Chronic Obstructive Pulmonary Disease (COPD) GI History: Reports: Hx Hiatal Hernia - PRN MEDICATION FOR, Hx Irritable Bowel Denies: Hx Ulcer History: Reports: Hx Kidney Stones - WHEN YOUNGER X 1 Musculoskeletal History: Reports: Hx Arthritis - SARCOID INDUCED Sensory History: Reports: Hx Contacts or Glasses - GLASSES Denies: Hx Hearing Aid Opthamlomology History: Reports: Hx Contacts or Glasses - GLASSES Neurological History: Reports: Hx Migraine - HX OF- NONE IN THE PAST 2 YEARS Psychiatric History: Reports: Hx Anxiety - SINCE A TEEN - Surgical History Surgery Procedure, Year, and Place: breast cysts removed L breast; clips placed on ovarian tubes 2006. October 29 2013 - reversal of tube clips. mediastinoscopy may 2013. COLONOSCOPY AND EGD Hx Anesthesia Reactions: No Infectious Disease History: No Infectious Disease History: Denies: Hx Clostridium Difficile, Hx Hepatitis, Hx Human Immunodeficiency Virus (HIV), Hx of Known/Suspected MRSA, Hx Shingles, Hx Tuberculosis, Hx Known/ Suspected VRE, Hx Known/Suspected VRSA, History Other Infectious Disease, Traveled Outside the [place] in Last 30 Days - Family History Known Family History: Positive: Cardiac Disease, Hypertension - mother Negative: Diabetes, Respiratory Disease, Seizure Disorder Family History: dyslipidemia - Social History Alcohol Use: Occasionally Hx Substance Use: No Substance Use Type: Reports: None Hx Tobacco Use: No Smoking Status (MU): Former Smoker Amount Used/How Often: 1/2 - 1 PPD X 1.5 YEARS Have You Smoked in the Last Year: No Review of Systems Positive: Chills. Negative: Fever Positive: Vomiting, Nausea. Negative: Diarrhea Positive: Headache All Other Systems Reviewed And Are Negative: Yes Physical Exam - Summary Physical Exam Summary: VITAL SIGNS: Reviewed. GENERAL: Patient is a well-developed and nourished FEMALE who is lying comfortable in the stretcher. Patient is not in any acute respiratory distress. HEAD AND FACE: No signs of trauma. No ecchymosis, hematomas or skull depressions. No sinus tenderness. EYES: PERRLA, EOMI x 2, No injected conjunctiva, no nystagmus. EARS: Hearing grossly intact. Ear canals and tympanic membranes are within normal limits. MOUTH: Oropharynx within normal limits. NECK: Supple, trachea is midline, no adenopathy, no JVD, no carotid bruit, no c- spine tenderness, neck with full ROM. CHEST: Symmetric, no tenderness at palpation LUNGS: Clear to auscultation bilaterally. No wheezing or crackles. CVS: Regular rate and rhythm, S1 and S2 present, no murmurs or gallops appreciated. ABDOMEN: Soft, non-tender. No signs of distention. No rebound no guarding, and no masses palpated. Bowel sounds are normal. EXTREMITIES: FROM in all major joints, no edema, no cyanosis or clubbing. NEURO: Alert and oriented x 3. No acute neurological deficits. Speech is normal and follows commands. SKIN: Dry and warm Triage Information Reviewed: Yes Vital Signs On Initial Exam: Initial Vitals Temp Pulse Resp BP Pulse Ox 97.3 F 100 16 123/80 99 03/26/18 21:15 03/26/18 21:15 03/26/18 21:15 03/26/18 21:15 03/26/18 21:15 Vital Signs Reviewed: Yes Diagnostics - Vital Signs Vital Signs Temp Pulse Resp BP Pulse Ox 03/26/18 21:15 97.3 F 100 16 123/80 99 - Laboratory Result Diagrams: 03/26/18 21:58 03/26/18 21:57 Lab Statement: Any lab studies that have been ordered have been reviewed, and results considered in the medical decision making process. GIGU Course/Dx - Course Course Of Treatment: This patient is a 37 year old F presenting to [facility] with a chief complaint of nausea and vomiting since yesterday. UA was unremarkable. She will be discharged with a prescription for Metoclopramide instructions to return with any new or worsening symptoms. This plan was discussed with the patient and she was agreeable with this plan. - Diagnoses Provider Diagnoses: Vomiting Discharge - Sign-Out/Discharge Documenting (check all that apply): Patient Departure - Discharge Plan Condition: Stable Disposition: HOME Prescriptions: Metoclopramide TAB* [Reglan TAB*] 10 mg PO Q6H PRN #20 tab PRN Reason: Nausea/Vomiting Patient Education Materials: Acute Nausea and Vomiting (ED) Referrals: Evan Haji MD [Primary Care Provider] - Additional Instructions: Return to ED with any new or worsening symptoms. Take medication as prescribed. - Attestation Statements Document Initiated by Scribe: Yes Documenting Scribe: Jose Damon Provider For Whom Sheree is Documenting (Include Credential): Zunilda West MD Scribe Attestation: Jose Wright, artemioibed for Zunilda West MD on 03/27/18 at 0011. Status of Scribe Document: Ready
[2018-03-26 22:12] LABS: ABS Basophils 0 10^3/ul (0-0.2); ABS Eosinophils 0 10^3/ul (0-0.6); ABS Lymphocytes 0.6 10^3/ul (1.0-4.8); ABS Monocytes 0.5 10^3/ul (0-0.8); ABS Neutrophils 4.2 10^3/ul (1.5-7.7); ABS Nucleated RBC 0 10^3/ul; Eosinophil % 0.5 %; Hematocrit 32 % (35-47); Hemoglobin 11.3 g/dl (12.0-16.0); Lymphocyte % 11.2 %; Mean Corpuscular HGB Conc 35 g/dl (31-36); Mean Corpuscular Hemoglobin 33 pg (27-31); Mean Corpuscular Volume 94 fL (80-97); Mean Platelet Volume 7.1 fL (7.4-10.4); Nucleated Red Blood Cells % 0; Platelet Count 209 10^3/ul (150-450); Red Cell Distribution Width 14 % (10.5-15); White Blood Count 5.2 10^3/ul (3.5-10.8)
[2018-03-26] MEDS: Lactated Ringers 1000 ML Bag* 1,000 ML IV SCH ×2 (22:18→23:20)
[2018-03-26 22:23] LABS: Albumin 3.4 g/dL (3.2-5.2); Albumin/Globulin Ratio 1.1 (1-3); BUN/Creatinine Ratio 21.8 (8-20); Calcium 8.2 mg/dL (8.6-10.3); EGFR Non-African American 125.1 (>60); Magnesium 1.8 mg/dL (1.9-2.7); Potassium 3.4 mmol/L (3.5-5.0); Total Bilirubin 0.4 mg/dL (0.2-1.0); Total Protein 6.4 g/dL (6.4-8.9)
[2018-03-27 00:32] VITALS: BP 109/62
== END | disposition home or self-care (01) ==
LOC: ED 21:09
DX: R11.2 Nausea with vomiting, unspecified (principal); R68.83 Chills (without fever); Z88.6 Allergy status to analgesic agent; Z87.891 Personal history of nicotine dependence; R51 Headache
CPT/HCPCS: 36415; 80053; 82150; 83690; 83735; 85025; 96365; 96366; 96375; 99282; A9270-GY; J2765

== ENCOUNTER 2018-04-24 22:01 | Emergency (ER) | payer BC, MEDICAID ==
--- NOTE | 2018-04-24 23:32 | ED ---
Headache - HPI Summary HPI Summary: This patient is a 37 year old F presenting to [facility] accompanied by her significant other with a chief complaint of intermittent ocular migraines since 1 day ago. Pt notes that she last experienced an episode today at 20:30. The patient rates the pain 6/10 in severity. Symptoms aggravated by nothing. Symptoms alleviated by nothing. Patient reports bilateral numbness in hands, numbness in tongue, and RODRIGUEZ. Hx ocular migraines with loss of vision in both eyes and notes that these symptoms are similar but notes the numbness is a new symptom. Patient denies any slurred speech and unsteady gait. Pt is almost 23 weeks with her 5th . She notes all 4 previous pregnancies have reached term. Pt was recently diagnosed with complete placenta previa. Hx anxiety and sarcoidosis. 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 - History Of Current Complaint Chief Complaint: EDHeadache Stated Complaint: 22 WKS PREG/MOUTH AND RT HAND NUMBNESS Time Seen by Provider: 04/24/18 23:18 Hx Obtained From: Patient Hx Last Menstrual Period: 09/27/2017 Onset/Duration: Sudden Onset, Started days ago - 1 day ago, Resolved Timing: Minutes Character: Migraine - occular migraine Aggravating Factor: Nothing Allevating Factors: Nothing Associated Signs And Symptoms: Visual Changes, Other (Noted In Comments) - numbness in bilateral hands, numbness in tongue - Allergies/Home Medications Allergies/Adverse Reactions: Allergies Allergy/AdvReac Type Severity Reaction Status Date / Time aspirin Allergy ANAPHYLACTI Verified 03/26/18 21:19 C caffeine Allergy STOMACH Verified 03/26/18 21:19 ISSUES latex Allergy SKIN Verified 03/26/18 21:19 BLISTERS AND PEELS NSAIDS (Non-Steroidal Allergy Anaphylatic Verified 03/26/18 21:19 Anti-Inflamma Shock Perfume [Fragrance] Allergy BREATHING Verified 03/26/18 21:19 ISSUES PMH/Surg Hx/FS Hx/Imm Hx Endocrine/Hematology History: Denies: Hx Diabetes, Hx Thyroid Disease - ENLARGED Cardiovascular History: Reports: Other Cardiovascular Problems/Disorders - SARCOIDOSIS Denies: Hx Hypertension, Hx Pacemaker/ICD Respiratory History: Reports: Hx Asthma - HX OF, Hx Sleep Apnea, Other Respiratory Problems/Disorders - SARCOIDOSIS Denies: Hx Chronic Obstructive Pulmonary Disease (COPD) GI History: Reports: Hx Hiatal Hernia - PRN MEDICATION FOR, Hx Irritable Bowel Denies: Hx Ulcer History: Reports: Hx Kidney Stones - WHEN YOUNGER X 1 Musculoskeletal History: Reports: Hx Arthritis - SARCOID INDUCED Sensory History: Reports: Hx Contacts or Glasses - GLASSES Denies: Hx Hearing Aid Opthamlomology History: Reports: Hx Contacts or Glasses - GLASSES Neurological History: Reports: Hx Migraine - HX OF- NONE IN THE PAST 2 YEARS Psychiatric History: Reports: Hx Anxiety - SINCE A TEEN - Surgical History Surgery Procedure, Year, and Place: breast cysts removed L breast; clips placed on ovarian tubes 2006. October 29 2013 - reversal of tube clips. mediastinoscopy may 2013. COLONOSCOPY AND EGD Hx Anesthesia Reactions: No Infectious Disease History: No Infectious Disease History: Denies: Hx Clostridium Difficile, Hx Hepatitis, Hx Human Immunodeficiency Virus (HIV), Hx of Known/Suspected MRSA, Hx Shingles, Hx Tuberculosis, Hx Known/ Suspected VRE, Hx Known/Suspected VRSA, History Other Infectious Disease, Traveled Outside the [place] in Last 30 Days - Family History Known Family History: Positive: Cardiac Disease, Hypertension - mother Negative: Diabetes, Respiratory Disease, Seizure Disorder Family History: dyslipidemia - Social History Alcohol Use: Occasionally Hx Substance Use: No Substance Use Type: Reports: None Hx Tobacco Use: No Smoking Status (MU): Former Smoker Amount Used/How Often: 1/2 - 1 PPD X 1.5 YEARS Have You Smoked in the Last Year: No Review of Systems Negative: Fever Positive: Other - occular migraines ENT: Negative - negative slurred speech Negative: Cough Negative: Vomiting Neurological: Other - confusion Positive: Headache, Numbness - in bilateral hands an dtongue All Other Systems Reviewed And Are Negative: Yes Physical Exam - Summary Physical Exam Summary: Appearance: Well-appearing, Well-nourished, lying in bed comfortably Skin: Warm, dry, no obvious rash Eyes: sclera anicteric, no conjunctival pallor ENT: mucous membranes moist, pharynx appears normal Neck: Supple, nontender Respiratory: Clear to auscultation, no signs of respiratory distress Cardiovascular: Normal S1, S2. No murmurs. Normal distal pulses in tibial and radial bilaterally. Abdomen: Soft, nontender, normal active bowel sounds present. Gravid, consistent with dates Musculoskeletal: Normal, Strength/ROM Intact, Motor function in all 4 extremities is normal and symmetric. There is no rigidity or tremor noted. Neurological: A&Ox3, awake and alert, mentation is normal, speech is fluent and appropriate, Level of consciousness nml. The patient is alert and oriented. Cranial nerves are grossly intact. Gaze is conjugate and without nystagmus. Peripheral vision is intact to confrontation. There are no gross sensory abnormalities to light touch. There is no truncal or fine motor ataxia. Gait is normal. Psychiatric: affect is normal, does not appear anxious or depressed Triage Information Reviewed: Yes Vital Signs On Initial Exam: Initial Vitals Temp Pulse Resp BP Pulse Ox 97.3 F 85 20 153/100 100 04/24/18 22:08 04/24/18 22:08 04/24/18 22:08 04/24/18 22:08 04/24/18 22:08 Vital Signs Reviewed: Yes Diagnostics - Vital Signs Vital Signs Temp Pulse Resp BP Pulse Ox 04/24/18 22:08 97.3 F 85 20 153/100 100 - Laboratory Lab Statement: Any lab studies that have been ordered have been reviewed, and results considered in the medical decision making process. Headache Course/Dx - Course Course Of Treatment: This patient is a 37 year old F with Hx ocular migraines presenting to [facility] accompanied by her significant other with a chief complaint of intermittent ocular migraines since 1 day ago. Patient reports bilateral numbness in hands, numbness in tongue, and RODRIGUEZ. Pt is almost 23 weeks . Patient will be discharged with follow up from PCP. Dx complicated migraine. The patient is agreeable with this plan. - Diagnoses Provider Diagnoses: Complicated migraine Discharge - Sign-Out/Discharge Documenting (check all that apply): Patient Departure - discharge - Discharge Plan Condition: Good Disposition: HOME Prescriptions: Prochlorperazine TAB* [Compazine Tab*] 5 mg PO Q6H PRN #10 tab PRN Reason: Headache Patient Education Materials: Ocular Migraine (ED) Referrals: Evan Haji MD [Primary Care Provider] - If Needed - Billing Disposition and Condition Condition: GOOD Disposition: Home - Attestation Statements Document Initiated by Scribe: Yes Documenting Scribe: Shani Lewis Provider For Whom Scribe is Documenting (Include Credential): Venkata Camargo MD Scribe Attestation: Shani Wright, artemioibed for Venkata Camargo MD on 04/25/18 at 0436. Scribe Documentation Reviewed: Yes Provider Attestation: The documentation as recorded by the artemioibe, Shani Lewis accurately reflects the service I personally performed and the decisions made by me, Venkata Camargo MD Status of Sheree Document: Viewed
[2018-04-24 23:56] VITALS: BP 125/74
== END 2018-04-24 23:56 | disposition home or self-care (01) ==
LOC: ED 22:01
DX: O26.892 Other specified pregnancy related conditions, second trimester (principal); G43.109 Migraine with aura, not intractable, without status migrainosus; Z3A.23 23 weeks gestation of pregnancy; Z88.6 Allergy status to analgesic agent; Z91.040 Latex allergy status
CPT/HCPCS: 99282

== ENCOUNTER 2018-08-19 07:59 | Inpatient (IN) | payer BC, MEDICAID ==
--- NOTE | 2018-08-19 09:33 | HP ---
General Information - Reason for Visit Pt denies contractions, LOF, or VB. Pt denies RODRIGUEZ, epigastric pain or edema. - General Information Maternal Age: 37 Grav: 5 Para: 4 SAB: 0 IEA: 0 Estimated Due Date: 09/01/18 Determined By: LMP Gestational Age in Weeks/Days: 38w 1d Maternal Blood Type and Rh: O Positive - Results this Serology/RPR Result: Non-Reactive Rubella Result: Immune HBsAg Result: Negative HIV Result: Negative GBS Culture Result: Positive Past Medical History Delivery History: Hx Uncomplicated Vaginal Delivery Pertinent Past Medical History: See Records - Sarcoidosis, asthma, tubal reversal, Gestational diabetes (diet controlled), Low lying placenta ( resolved 06/25/18), migraines, history of kidney stones, gestational hypertension Pertinent Past Surgical History: See Records - tubal 2006, tubal reversal 2013, mediastinoscopy 2013 Pertinent Family History: See Records - CVD, HTN, colon, liver and breast cancer, high cholesterol, psychiatric disorders - Antepartal Records Antepartal Records: Reviewed, Complicated by: - 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), asthma, low lying placenta (resolved 06/25/18), gestational diabetes diet controlled and gestational hypertension Review of Systems Constitutional: Comfortable CV Complaint: No Respiratory: Shortness of Breath: No Gastrointestinal: No Nausea/Vomiting, Soft Stool Genitourinary: No Dysuria, No Bleeding, No Leaking Fluid Musculoskeletal: No Complaint, No Epigastric Pain Neurological: No Headache, No Visual Changes Movement: Normal Exam Allergies/Adverse Reactions: Allergies aspirin Allergy (Severe, Verified 08/19/18 08:23) ANAPHYLACTIC NSAIDS (Non-Steroidal Anti-Inflamma Allergy (Severe, Verified 08/19/18 08:23) Anaphylatic Shock latex Allergy (Intermediate, Verified 08/19/18 08:23) SKIN BLISTERS AND PEELS caffeine Allergy (Verified 08/19/18 08:23) STOMACH ISSUES Perfume [Fragrance] Allergy (Verified 08/19/18 08:23) BREATHING ISSUES BP: 131/86, T:86, T:97, R:20 - Measurements Height: 5 ft 4 in Weight: 226 lb Weight in lbs: 226.554170 Body Mass Index (BMI): 38.7 Pre- Weight: 199 lb Weight Gained This : 27 lbs and 0 ozs - Exam Breast: Breast Exam Deferred CVA: No CVA Tenderness Extremities: No Edema Heart: Normal Rhythm/Heart Sounds HEENT: No Significant Findings Lungs: Clear Bilaterally Rectal: Rectal Exam Deferred Reflexes: DTR 2+ Thyroid: No Thyromegaly - Abdominal Exam Abdomen Exam: Non-Tender - Ultrasound/Biophysical Profile Ultrasound Status: Not Done Targeted Exam Findings Estimated Weight: 7lbs 10oz Cervical Exam: 2cm Effacement: 70% Station: Ballotable Presenting Part: Vertex Membrane Status: Intact Bleeding/Discharge: None EFM Findings - External Monitor Findings Baseline Heart Rate: 130 External Monitor Findings: Accelerations Present, No Pattern of Variable or Late Decelerations, Variability Moderate, Baseline Stable Contractions: None Assessment/Plan - Assessment 37 y.o. , 38w1d, AMA, diet controlled gestational diabetes, gestational hypertension, sarcoidosis. IOL. NST: cat I no contractions - Obstetrical Risk Factors Obstetrical Risk Factors: Gestational Hypertension, Gestational Diabetes Risk Factors Comment: sarcoidosis - Plan Plan: Induction - Date/Time of Admission Date of Admission: 08/19/18 Time of Admission: 09:30
[2018-08-19] MEDS ORDERED: Lactated Ringers 1000 ML Bag* 1,000 ML IV ONE (09:43)
[2018-08-19] MEDS ORDERED: Buffered Lidocaine 1% SYRIN* 1 ML/SYRINGE INTRADERM ONE (09:43)
[2018-08-19] MEDS ORDERED: Misoprostol TAB* 100 MCG PO ONE (09:43)
[2018-08-19] MEDS ORDERED: diPHENhydraMINE PO* 50 MG PO PRN (21:50)
--- NOTE | 2018-08-19 21:50 | PN ---
Progress Note - Progress Note Date of Service: 08/19/18 SOAP: Subjective: Pt reports contractions seem to have slowed in frequency but some are still strong. Pt reports she is tired. Reviewed options for mgmt and pt elects for therapeutic rest. Objective: FHR: 155 bpm, + accels, occasional variables, moderate variability, cervix: 4-5/80/-2, T:98.7, R:20, P:88, BP 155/91 repeat: 125/78 Assessment: 37 y.o. , early labor, 38wks 1d, sarcoidosis, Gestational diabetes, Gestational hypertension, Cat I NST Plan: 1) Reviewed options including pitocin augmentation, epidural or therapeutic rest and pt elects to continue with therapeutic rest 2) Benadryl ordered 3) Reevaluate in the AM or sooner PRN
[2018-08-20] MEDS ORDERED: Misoprostol TAB* 100 MCG PO ONE (09:02)
--- NOTE | 2018-08-20 09:11 | PN ---
Progress Note - Progress Note Date of Service: 08/20/18 SOAP: Subjective: Pt slept well overnight. +FM, -LOF, -VB. Pt denies chest pain, headache, or epigastric pain. Objective: FHR: 130, + accels, occasional variables, moderate variability, BP:138/86, P:77 , T:96.7 cervix: 4.5/80/ballotable-vertex, intact membranes Assessment: 37 y.o. , induction of labor gestational hypertension, gestational diabetes , sarcoidosis 38w2d Plan: 1) Reviewed options and pt agrees to continue with misoprostol 25mcg 2) Position changes for descent
[2018-08-20] MEDS ORDERED: Misoprostol TAB* 100 MCG ONE (09:16)
[2018-08-20 14:33] LABS: ABS Lymphocytes 0.8 10^3/ul (1.0-4.8); ABS Monocytes 0.6 10^3/ul (0-0.8); ABS Neutrophils 6.3 10^3/ul (1.5-7.7); Eosinophil % 0.4 %; Hematocrit 32 % (35-47); Hemoglobin 11.1 g/dL (12.0-16.0); Lymphocyte % 10.4 %; Mean Corpuscular HGB Conc 35 g/dL (31-36); Mean Corpuscular Hemoglobin 32 pg (27-31); Mean Corpuscular Volume 91 fL (80-97); Mean Platelet Volume 8.4 fL (7.4-10.4); Platelet Count 220 10^3/uL (150-450); Red Blood Count 3.48 10^6 /uL (3.70-4.87); Red Cell Distribution Width 14 % (10.5-15); White Blood Count 7.7 10^3/uL (3.5-10.8)
[2018-08-20 15:07] LABS: Albumin 3.4 g/dL (3.2-5.2); BUN/Creatinine Ratio 15.6 (8-20); Globulin 3.5 g/dL (2-4); Potassium 3.9 mmol/L (3.5-5.0); Total Bilirubin 0.4 mg/dL (0.2-1.0); Total Protein 6.9 g/dL (6.4-8.9)
[2018-08-20] MEDS: Lactated Ringers 1000 ML Bag* 1,000 ML IV SCH ×2 (16:36→21:26)
[2018-08-20] MEDS ORDERED: Oxytocin in LR* 20 UNITS/1,000 ML BAG IVPB SCH ×2 (17:00→23:36)
--- NOTE | 2018-08-20 18:46 | PN ---
Progress Note - Progress Note Date of Service: 08/20/18 SOAP: Subjective: Pt reports contractions are getting more intense. Pt is coping well. Objective: BP: 149/91, P: 85, T: 98.2, R: 18 FHR: 130bpm, +accels, -decels, moderate variability. Pitocin at 9, ctx q 4-5min cervical exam declined Assessment: 37 y.o. , gest HTN, gest diabetes, sarcoidosis, early labor Plan: 1) Positions to encourage descent 2) Epidural when uncomfortable 3) Dr. Lock aware of pt
[2018-08-20] MEDS ORDERED: Mometasone/Formoter 200/5 MDI INH SCH (21:00)
[2018-08-20] MEDS ORDERED: OBEPIDURAL* 250 ML EPIDURAL ONE (21:22)
[2018-08-20] MEDS ORDERED: Lactated Ringers 1000 ML Bag* 500 ML IV PRN ×2 (22:19)
[2018-08-20] MEDS ORDERED: Famotidine TAB* 20 MG PO PRN (22:19)
[2018-08-20] MEDS ORDERED: Sodium Citrate/Citric Acid* 15 ML UDC PO PRN (22:19)
[2018-08-20] MEDS ORDERED: EPHEDrine (Pressors)* 50 MG/ML VIAL IV PUSH PRN ×2 (22:19)
[2018-08-20] MEDS ORDERED: Phenylephrine 40 MCG/ML SYRINGE IV PUSH PRN ×2 (22:19)
[2018-08-20] MEDS ORDERED: Lactated Ringers 1000 ML Bag* 1,000 ML IV ONE (22:19)
[2018-08-20] MEDS ORDERED: Lactated Ringers 1000 ML Bag* 1,000 ML IV SCH ×2 (23:00→23:45)
[2018-08-20] MEDS ORDERED: OBEPIDURAL* 250 ML EPIDURAL SCH (23:00)
[2018-08-20] MEDS ORDERED: Glycerin ADULT SUPP PR PRN (23:34)
[2018-08-20] MEDS ORDERED: Ibuprofen TAB* 600 MG PO PRN (23:34)
[2018-08-20] MEDS ORDERED: Witch Hazel PAD* JAR TOPICAL PRN (23:34)
[2018-08-20] MEDS ORDERED: Dibucaine 1% 28.35 GM TUBE PR PRN (23:34)
--- NOTE | 2018-08-20 23:39 | PROCNOTE ---
[facility] OB: Delivery Note - Delivery A Date of : 08/20/18 Time of : 23:19 Sex: Male Score 1 Minute: 9 Score 5 Minutes: 9 Gestational Age in Weeks and Days at Delivery: 38 Weeks and 2 Days Delivery Method: Spontaneous Vaginal Labor: Induced Amniotic Fluid: Clear Estimated Blood Loss: 200 Anesthesia/Analgesia: CEI for Labor Delivered By: Tatum Gallo - Nursery Level of Nursery: Regular/Bedside - Perineum Perineal Injury: None/Intact - Events Delivery Events of Note: Pitocin During Labor Delivery Events of Note Comment: nuchal cord x 2 reduced on perineum
[2018-08-21 07:20] LABS: ABS Eosinophils 0.1 10^3/ul (0-0.6); ABS Lymphocytes 0.9 10^3/ul (1.0-4.8); ABS Monocytes 0.7 10^3/ul (0-0.8); ABS Neutrophils 7.5 10^3/ul (1.5-7.7); Eosinophil % 0.6 %; Hematocrit 28 % (35-47); Hemoglobin 9.7 g/dL (12.0-16.0); Lymphocyte % 9.6 %; Mean Corpuscular HGB Conc 35 g/dL (31-36); Mean Corpuscular Hemoglobin 32 pg (27-31); Mean Corpuscular Volume 92 fL (80-97); Mean Platelet Volume 8.4 fL (7.4-10.4); Nucleated Red Blood Cells % 0.1; Platelet Count 182 10^3/uL (150-450); Red Blood Count 3.01 10^6 /uL (3.70-4.87); Red Cell Distribution Width 14 % (10.5-15); White Blood Count 9.1 10^3/uL (3.5-10.8)
[2018-08-21] MEDS ORDERED: Simethicone TAB* 80 MG TAB.CHEW PO SCH (08:30)
[2018-08-21] MEDS: Docusate CAP* 100 MG PO SCH ×3 (08:46→20:10)
[2018-08-21] MEDS: Ferrous Gluconate TAB* 324 MG TAB PO SCH ×2 (08:46→20:09)
[2018-08-21] MEDS: Acetaminophen TAB* 325 MG PO PRN ×3 (08:46→20:10)
[2018-08-21] MEDS: Enoxaparin(*) 40 MG/0.4 ML SYR SUBCUT SCH (13:26)
[2018-08-22] MEDS: Docusate CAP* 100 MG PO SCH ×2 (09:40→13:08)
[2018-08-22] MEDS: Acetaminophen TAB* 325 MG PO PRN (09:40)
[2018-08-22] MEDS: Ferrous Gluconate TAB* 324 MG TAB PO SCH (09:41)
[2018-08-22 12:17] VITALS: BP 147/91
[2018-08-22] MEDS: Enoxaparin(*) 40 MG/0.4 ML SYR SUBCUT SCH (13:08)
== END 2018-08-22 13:35 | disposition home or self-care (01) | DRG 560 ==
LOC: MCHOBOUT 07:59 → MCHOB 09:32
PROVIDERS: ADMIT Midwife; ATTEND Midwife
PROC: 10907ZC Drainage of Amniotic Fluid, Therapeutic from Products of Conception, Via Natural or Artificial Opening (ICD-10-PCS; 2018-08-19)
PROC: 4A1HXCZ Monitoring of Products of Conception, Cardiac Rate, External Approach (ICD-10-PCS; 2018-08-19)
PROC: 10E0XZZ Delivery of Products of Conception, External Approach (ICD-10-PCS; principal; 2018-08-20)
PROC: 3E0P7VZ Introduction of Hormone into Female Reproductive, Via Natural or Artificial Opening (ICD-10-PCS; 2018-08-20)
PROC: 3E033VJ Introduction of Other Hormone into Peripheral Vein, Percutaneous Approach (ICD-10-PCS; 2018-08-20)
DX: O99.824 Streptococcus B carrier state complicating childbirth (principal); Z37.0 Single live birth; O24.420 Gestational diabetes mellitus in childbirth, diet controlled; O13.4 Gestational [pregnancy-induced] hypertension without significant proteinuria, complicating childbirth; D86.9 Sarcoidosis, unspecified; O99.89 Other specified diseases and conditions complicating pregnancy, childbirth and the puerperium; J45.909 Unspecified asthma, uncomplicated; O99.52 Diseases of the respiratory system complicating childbirth; O69.81X0 Labor and delivery complicated by cord around neck, without compression, not applicable or unspecified; Z3A.38 38 weeks gestation of pregnancy; Z88.6 Allergy status to analgesic agent; Z91.040 Latex allergy status; Z88.8 Allergy status to other drugs, medicaments and biological substances; Z91.048 Other nonmedicinal substance allergy status
CPT/HCPCS: 36415; 76815; 80053; 85025; 86850; 86900; 86901; A9270-GY; J1650; S0191

== ENCOUNTER 2019-03-05 16:17 | Emergency (ER) | payer BC, MEDICAID ==
--- OUTSIDE RECORDS SUMMARY | 2019-03-05 16:24 | XMS REPORT | Continuity of Care Document ---
:1980 External Reference #:[id number] Author Name MARSHALL Sinclair (transmitted by agent of provider Chirag Steward) Address [address] [facility] [place] [address] Care Team Providers Name Role Phone Evan Haji MD - Family Medicine Care Team Information Cardroom Worker Torres Guajardo MD - Rheumatology Care Team Information Cardroom Worker [phone] Problems Active Problems Provider Date Abnormal results function studies of Onset: 10/30/2018 central nervous system Chronic fatigue syndrome Onset: 10/30/2018 Disturbance in sleep behavior Onset: 06/02/2015 Obesity Onset: 06/02/2015 Obstructive sleep apnea syndrome Onset: 06/23/2015 Sarcoidosis Onset: 06/02/2015 Skin sensation disturbance Onset: 10/30/2018 Thyroiditis Onset: 10/30/2018 Dietetic gastroenteritis TREMAINE Ward Onset: 01/21/2019 Allergy to other foods TREMAINE Ward Onset: 01/21/2019 Social History Type Date Description Comments Sex Unknown Allergies, Adverse Reactions, Alerts Active Allergies Reaction Severity Comments Date Aspirin 12/31/2018 Caffeine 12/31/2018 Latex 12/31/2018 NSAIDS 12/31/2018 Artificial Sweetners 01/21/2019 Medications Active Medications SIG Qnty Indications Ordering Provider Date Flonase Allergy one puff each 9.900ml Chirag Garcia 01/21/2019 Relief Childrens nostril every MD Bin day 50mcg/Act Suspension Labetalol HCL 400MG tablet Chirag Blanchard 10/30/2018 300mg by mouth twice M.MD Tablets a day Sertraline HCL Take one 30tabs Torres Guajardo MD 09/30/2018 25mg capsule/tablet Tablets daily by mouth Symbicort 2 puff twice a Unknown 11/14/2015 day 160-4.5mcg/Act Aerosol Zantac 150 Maximum take one pill Unknown Strength every evening 150mg as needed Tablets Magnesium Unknown 300mg Capsules Potassium Unknown 75mg Tablets Unknown Tablets Immunizations CPT Code Status Date Vaccine Lot # [id number] Given 06/02/2015 Influenza Virus Split 3 Yrs And Above For Intramuscular Use Vital Signs Date Vital Result Comment 02/18/2019 3:05pm BP Systolic 144 mmHg BP Diastolic 90 mmHg Height 64 inches 5'4" Weight 193.00 lb BMI (Body Mass Index) 33.1 kg/m2 Heart Rate 77 /min Respiratory Rate 18 /min Body Temperature 97.3 F O2 % BldC Oximetry 97 % 01/21/2019 2:02pm BP Systolic 148 mmHg BP Diastolic 88 mmHg Height 64 inches 5'4" Weight 199.00 lb BMI (Body Mass Index) 34.2 kg/m2 Heart Rate 76 /min O2 % BldC Oximetry 98 % Results Test Acquired Date Facility Test Result H/L Range Note Lab Results 11/21/2018 N2N/CCD Import CSF Total Protein 33 mg/dL 15-45 CSF Glucose 65 mg/dL 40-70 CSF Culture & 11/21/2018 N2N/CCD Import CSF Culture See Result 1 Sensitivity Gram Stain Below Basic Metabolic 11/21/2018 N2N/CCD Import Sodium 138 mmol/L 135-145 Panel Potassium 4.3 mmol/L 3.5-5.0 Chloride 104 mmol/L 101-111 Co2 Carbon Dioxide 25 mmol/L 22-32 Anion Gap 9 mmol/L 2-11 Glucose 90 mg/dL 70-100 Blood Urea Nitrogen 15 mg/dL 6-24 Creatinine 0.98 mg/dL High 0.51-0.95 BUN/Creatinine Ratio 15.3 1 8-20 Calcium 9.9 mg/dL 8.6-10.3 Egfr Non- 63.9 1 Egfr 77.3 1 2 Lab Results 11/21/2018 N2N/CCD Import Creatine Kinase(CK) 187 U/L 10- 223 Myoglobin 39.2 ng/mL 14.3-65.8 Vitamin B12 733 pg/mL 180-914 3 Folic Acid (Folate) > 20.00 ng/mL CSF Cell Count 11/21/2018 N2N/CCD Import Body Fluid Source Cerebral Spinal Body Fluid Appearance Clear Body Fluid Color Colorless CSF Tube # 4 1 Body Fluid Volume 3 mL Body Fluid WBC 2 /mcL Body Fluid RBC 0 /mcL Body Fluid Lymph 40 % Body Fluid [place] 60 % Body Fluid Total Cells Counted 20 1 Fluid Reviewed By MD (See Note) 4 Lyme Disease PCR 11/21/2018 N2N/CCD Import Lyme Disease Source CSF Tissue/Fluid B. burgdorferi PCR Negative B. mayonii PCR Negative B. garinii/B. afzellii PCR Negative Lyme CSF Comment See Comment 5 Lab Results 11/21/2018 N2N/CCD Import Miscellaneous Test (See Note) 6 Lab Results 10/27/2018 N2N/CCD Import Sodium 138 mmol/L 135-145 Potassium 4.0 mmol/L 3.5-5.0 Chloride 104 mmol/L 101-111 Co2 Carbon Dioxide 24 mmol/L 22-32 Anion Gap 10 mmol/L 2-11 Glucose 112 mg/dL High 70-100 Blood Urea Nitrogen 14 mg/dL 6-24 Creatinine 0.93 mg/dL 0.51-0.95 BUN/Creatinine Ratio 15.1 1 8-20 Calcium 9.5 mg/dL 8.6-10.3 Total Protein 7.6 g/dL 6.4-8.9 Albumin 4.3 g/dL 3.2-5.2 Globulin 3.3 g/dL 2-4 Albumin/Globulin Ratio 1.3 1 1-3 Total Bilirubin 0.40 mg/dL 0.2-1.0 Alkaline Phosphatase 88 U/L 34-104 Alt 40 U/L 7-52 Ast 32 U/L 13-39 Egfr Non- 67.8 1 Egfr 82.1 1 7 CBC Auto Diff 10/27/2018 N2N/CCD Import White Blood Count 4.6 10^3/uL 3.5-10.8 Red Blood Count 4.36 10^6/uL 3.70-4.87 Hemoglobin 13.0 g/dL 12.0-16.0 Hematocrit 38 % 35-47 Mean Corpuscular Volume 87 fL 80-97 Mean Corpuscular Hemoglobin 30 pg 27-31 Mean Corpuscular HGB Conc 34 g/dL 31-36 Red Cell Distribution Width 16 % High 10-15 Platelet Count 255 10^3/uL 150-450 Mean Platelet Volume 7.4 fL 7.4-10.4 Abs Neutrophils 2.7 10^3/uL 1.5-7.7 Abs Lymphocytes 1.3 10^3/uL 1.0-4.8 Abs Monocytes 0.5 10^3/uL 0-0.8 Abs Eosinophils 0.1 10^3/uL 0-0.6 Abs Basophils 0.0 10^3/uL 0-0.2 Abs Nucleated RBC 0.0 10^3/uL Granulocyte % 59.9 % Lymphocyte % 28.2 % Monocyte % 10.4 % Eosinophil % 1.2 % Basophil % 0.3 % Nucleated Red Blood Cells % 0.3 1 Lab Results 10/27/2018 N2N/CCD Import C Reactive Protein 3.67 mg/L 8 Erythrocyte Sed Rate 18 mm/Hr 0-19 9 Lab Results 09/02/2018 N2N/CCD Import Anti-Nuclear Antibody 0.5 U 10 Cyclic Citrullinated Peptide <15.6 U 11 Interpretation See Comment 12 Angiotensin Converting Enzyme 56 U/L 16-85 13 Erythrocyte Sed Rate 65 mm/Hr High 0-19 14 C Reactive Protein 9.23 mg/L High 15 Urinalysis Profile 09/02/2018 N2N/CCD Import Urine Color Yellow Urine Appearance Clear Urine Specific [place] 1.017 1 1.010-1.030 Urine pH 5.0 1 5-9 Urine Urobilinogen Negative Urine Ketones Negative Urine Protein Negative Urine Leukocytes Negative Urine Blood Negative Urine Nitrite Negative Urine Bilirubin Negative Urine Glucose Negative CBC Auto Diff 09/02/2018 N2N/CCD Import White Blood Count 5.1 10^3/uL 3.5-10.8 Red Blood Count 3.73 10^6/uL 3.70-4.87 Hemoglobin 11.5 g/dL Low 12.0-16.0 Hematocrit 33 % Low 35-47 Mean Corpuscular Volume 89 fL 80-97 Mean Corpuscular Hemoglobin 31 pg 27-31 Mean Corpuscular HGB Conc 35 g/dL 31-36 Red Cell Distribution Width 14 % 10.5-15 Platelet Count 372 10^3/uL 150-450 Mean Platelet Volume 7.2 fL Low 7.4-10.4 Abs Neutrophils 3.3 10^3/uL 1.5-7.7 Abs Lymphocytes 1.2 10^3/uL 1.0-4.8 Abs Monocytes 0.4 10^3/uL 0-0.8 Abs Eosinophils 0.1 10^3/uL 0-0.6 Abs Basophils 0.0 10^3/uL 0-0.2 Abs Nucleated RBC 0.0 10^3/uL Granulocyte % 64.9 % Lymphocyte % 24.1 % Monocyte % 8.7 % Eosinophil % 1.7 % Basophil % 0.6 % Nucleated Red Blood Cells % 0.0 1 Lab Results 09/02/2018 N2N/CCD Import Sodium 138 mmol/L 135-145 Potassium 4.2 mmol/L 3.5-5.0 Chloride 105 mmol/L 101-111 Co2 Carbon Dioxide 25 mmol/L 22-32 Anion Gap 8 mmol/L 2-11 Glucose 88 mg/dL 70-100 Blood Urea Nitrogen 14 mg/dL 6-24 Creatinine 0.78 mg/dL 0.51-0.95 BUN/Creatinine Ratio 17.9 1 8-20 Calcium 9.5 mg/dL 8.6-10.3 Total Protein 7.4 g/dL 6.4-8.9 Albumin 3.9 g/dL 3.2-5.2 Globulin 3.5 g/dL 2-4 Albumin/Globulin Ratio 1.1 1 1-3 Total Bilirubin 0.30 mg/dL 0.2-1.0 Alkaline Phosphatase 95 U/L 34-104 Alt 28 U/L 7-52 Ast 22 U/L 13-39 Egfr Non- 83.1 1 Egfr 100.6 1 16 Thyroperoxidase AB 0.79 IU/mL 17 Rheumatoid Factor < 10 Iu/ml 18 Anca AB Ser If 09/02/2018 N2N/CCD Import C-Anca Negative P-Anca Negative 19 Lab Results 09/02/2018 N2N/CCD Import Creatine Kinase(CK) 127 U/L 10- 223 20 QuantiFERON-Tb Gold Plus Negative 21 TB1 Ag minus Nil Result 0.01 IU/mL TB2 Ag minus Nil Result 0 IU/mL TB Mitogen minus Nil Result 7.52 IU/mL TB Nil Result 0.01 IU/mL 22 1 SEE RESULT BELOW Name: ERNESTO GAYTAN : [address]: Blayne Miner MD Acct: [id number] Unit: [id number] AGE: 38 Location: PAIN Re11/21/18 SEX: F Status: REG REF SPEC: [id number] JOSSELYN: 11/21/18-[address] [facility] [address]: Blayne Miner MD REQ: [id number] RECD: 11/21/18 STATUS: TASIA MARTINEZHR DR: Kevin Blanchard MD _ SOURCE: CSF SPDESC: ORDERED: CSF Cult/GS, AFB Cult Smear Procedure Result Reported Site CSF Gram Stain Final 11/21/18- 1351 ML No Neutrophils Observed No Organisms Seen Preparation By Direct Smear CSF Culture Final 11/25/18- 0825 ML No Growth Day 4 Acid Fast Stain - Direct Final 11/21/18- 1442 ML AFB Smear Result No Acid Fast Bacillus Present (Negative) Due to limited sensitivity of the smear, results should be used as an adjunct in evaluating the patient's status. This specimen has been sent to referral laboratory for mycobacterial culture. * ML - Main Lab . END OF REPORT DEPARTMENT OF PATHOLOGY, [address] [place] [address] Willie Purdy M.D. Director [facility] # [id number] 2 Because ethnic data is not always readily available, this report includes an eGFR for both -Americans and non- Americans. The National Kidney Disease Education Program (NKDEP) does not endorse the use of the MDRD equation for patients that are not between the ages of 18 and 70, are , have extremes of body size, muscle mass, or nutritional status, or are non- or non-. According to the National Kidney Foundation, irrespective of diagnosis, the stage of the disease is based on the level of kidney function: Stage Description GFR(mL/min/1.73 m(2)) 1 Kidney damage with normal or decreased GFR 90 2 Kidney damage with mild decrease in GFR 60-89 3 Moderate decrease in GFR 30-59 4 Severe decrease in GFR 15-29 5 Kidney failure <15 (or dialysis) 3 Normal Range 180 to 914 Indeterminate Range 145 to 180 Deficient Range <145 4 No evidence of malignancy or acute inflammatory response. No microorganisms are seen. 5 If clinical features of illness are highly indicative of Lyme neuroborreliosis, additional serological testing would be recommended. ADDITIONAL INFORMATION This test was developed and its performance characteristics determined by [facility] in a manner consistent with CLIA requirements. This test has not been cleared or approved by the U.S. Food and Drug Administration. Test Performed by: [facility] - [address] [address] 6 SEE RESULT BELOW Name: ERNESTO GAYTAN : [address]: Blayne Miner MD Acct: [id number] Unit: [id number] AGE: 38 Location: PAIN Re11/21/18 SEX: F Status: REG REF SPEC: [id number] JOSSELYN: 11/21/18-[address] [facility] [address]: Blayne Miner MD REQ: [id number] RECD: 11/21/18-6 STATUS: TASIA CARBAJAL DR: Kevin Blanchard MD _ SOURCE: CSF SPDESC: ORDERED: CSF Cult/GS, AFB Cult Smear Procedure Result Reported Site CSF Gram Stain Final 11/21/18- 1351 ML No Neutrophils Observed No Organisms Seen Preparation By Direct Smear CSF Culture Final 11/25/18- 0825 ML No Growth Day 4 Acid Fast Stain - Direct Final 11/21/18- 1442 ML AFB Smear Result No Acid Fast Bacillus Present (Negative) Due to limited sensitivity of the smear, results should be used as an adjunct in evaluating the patient's status. This specimen has been sent to referral laboratory for mycobacterial culture. * ML - Main Lab . END OF REPORT DEPARTMENT OF PATHOLOGY, [address] [place] [address] Willie Purdy M.D. Director [facility] # [id number] 7 Because ethnic data is not always readily available, this report includes an eGFR for both -Americans and non- Americans. The National Kidney Disease Education Program (NKDEP) does not endorse the use of the MDRD equation for patients that are not between the ages of 18 and 70, are , have extremes of body size, muscle mass, or nutritional status, or are non- or non-. According to the National Kidney Foundation, irrespective of diagnosis, the stage of the disease is based on the level of kidney function: Stage Description GFR(mL/min/1.73 m(2)) 1 Kidney damage with normal or decreased GFR 90 2 Kidney damage with mild decrease in GFR 60-89 3 Moderate decrease in GFR 30-59 4 Severe decrease in GFR 15-29 5 Kidney failure <15 (or dialysis) 8 Please check labs 1 week before follow up 9 Please check labs 1 week before follow up 10 REFERENCE VALUE <=1.0 (Negative) 11 REFERENCE VALUE <20.0 (Negative) 12 Tests for antibodies to dsDNA and MICHELLE antigens are not performed automatically unless the NGHIA result is > or = 3.0 U. Studies performed at [facility] indicate that positive NGHIA results <3.0 U are rarely accompanied by positive second order tests. Test Performed by: [facility] [employer] [facility] [place] [address] 13 REFERENCE VALUE <=1.0 (Negative) 14 REFERENCE VALUE <20.0 (Negative) 15 Tests for antibodies to dsDNA and MICHELLE antigens are not performed automatically unless the NGHIA result is > or = 3.0 U. Studies performed at [facility] indicate that positive NGHIA results <3.0 U are rarely accompanied by positive second order tests. Test Performed by: [facility] [employer] - [place] [address] 16 Because ethnic data is not always readily available, this report includes an eGFR for both -Americans and non- Americans. The National Kidney Disease Education Program (NKDEP) does not endorse the use of the MDRD equation for patients that are not between the ages of 18 and 70, are , have extremes of body size, muscle mass, or nutritional status, or are non- or non-. According to the National Kidney Foundation, irrespective of diagnosis, the stage of the disease is based on the level of kidney function: Stage Description GFR(mL/min/1.73 m(2)) 1 Kidney damage with normal or decreased GFR 90 2 Kidney damage with mild decrease in GFR 60-89 3 Moderate decrease in GFR 30-59 4 Severe decrease in GFR 15-29 5 Kidney failure <15 (or dialysis) 17 REFERENCE VALUE <=1.0 (Negative) 18 REFERENCE VALUE <20.0 (Negative) 19 REFERENCE VALUE <20.0 (Negative) 20 REFERENCE VALUE <=1.0 (Negative) 21 REFERENCE VALUE <=1.0 (Negative) 22 Test Performed by: [facility] 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 Office Visit 01/21/2019 2:00p Haylee Kurtz K52.29 Other allergic and FenstkaydenrKAMI-Zuhair dietetic gastroenteritis and colitis Assessments Date Code Description Provider 02/18/2019 Z91.018 Allergy to other foods MARSHLAL Sinclair 02/18/2019 Z91.018 Allergy to other foods Chirag Steward MD 02/18/2019 K52.29 Other allergic and dietetic MARSHALL Sinclair gastroenteritis and colitis 01/21/2019 K52.29 Other allergic and dietetic TREMAINE Ward gastroenteritis and colitis Plan of Treatment 02/18/2019 - Geovany Singleton PAZ91.018 Allergy to other foodsComments:Patient skin test showed 1+ positive to almonds and negative to all other foods tested. Patient consumes almonds and also drinks Phelps milk on a daily basis. Patient is not allergic to almonds. 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
--- OUTSIDE RECORDS SUMMARY | 2019-03-05 16:24 | XMS REPORT | Continuity of Care Document ---
:1980 External Reference #:[id number] Author Name TREMAINE Ward (transmitted by agent of provider Chirag Steward) Address [address] [place] [id number] Care Team Providers Name Role Phone Evan Haji MD - Family Medicine Care Team Information Tobacco Curer [phone] Torres Guajardo MD - Rheumatology Care Team Information Tobacco Curer Problems Active Problems Provider Date Abnormal results [...] CPT Code Status Date Vaccine Lot # [id number] Given 06/02/2015 Influenza Virus Split 3 Yrs And Above For Intramuscular Use Vital Signs Date Vital Result Comment 01/21/2019 2:02pm BP Systolic 148 mmHg BP Diastolic 88 mmHg Height 64 inches 5'4" Weight 199.00 lb BMI (Body Mass Index) 34.2 kg/m2 Heart Rate 76 /min O2 % BldC Oximetry 98 % 12/24/2018 2:40pm Height 64 inches Weight 201.50 lb BMI (Body Mass Index) 34.6 kg/m2 Heart Rate 75 /min O2 % BldC Oximetry 98 % Results Test Date Facility Test Result H/L Range Note [...] Body Fluid Lymph 40 % Body Fluid [place] 60 % Body Fluid Total Cells Counted 20 1 Fluid Reviewed By (See Note) 4 Lyme Disease PCR 11/21/2018 [...] Color Yellow Urine Appearance Clear Urine Specific [place] 1.017 1 1.010-1.030 Urine pH 5.0 1 [...] IU/mL 22 1 SEE RESULT BELOW Name: JOHN GAYTAN : [address]: Blayne Miner MD Acct: [id number] Unit: [id number] AGE: 38 Location: PAIN Re11/21/18 SEX: F Status: REG REF SPEC: [id number] JOSSELYN: 11/21/186 [facility] DR: Blayne Miner MD REQ: [id number] RECD: 11/21/18 STATUS: TASIA CARBAJAL DR: Kevin Blanchard MD [...] . END OF REPORT DEPARTMENT OF PATHOLOGY, [address] [place] [address] Wlilie Purdy M.D. Director [facility] # [id number] 2 Because ethnic data is not always [...] developed and its performance characteristics determined by [facility] in a manner consistent with CLIA requirements. This test has not been cleared or approved by the U.S. Food and Drug Administration. Test Performed by: [facility] - [address] [address] 6 SEE RESULT BELOW Name: JOHN GAYTAN : [address]: Blayne Miner MD Acct: [id number] Unit: [id number] AGE: 38 Location: PAIN Re11/21/18 SEX: F Status: REG REF SPEC: [id number] JOSSELYN: 11/21/18-1116 [facility] DR: Blayne Miner MD REQ: [id number] RECD: 11/21/18 STATUS: TASIA CARBAJAL DR: Kevin Blanchard MD [...] . END OF REPORT DEPARTMENT OF PATHOLOGY, [address] [place] [address] Willie Purdy M.D. Director [facility] # [id number] 7 Because ethnic data is not always [...] 12 Tests for antibodies to dsDNA and [place] antigens are not performed automatically unless the NGHIA result is > or = 3.0 U. Studies performed at [facility] indicate that positive NGHIA results <3.0 U are rarely accompanied by positive second order tests. Test Performed by: [facility] [place] [address] 13 REFERENCE VALUE <=1.0 (Negative) 14 REFERENCE VALUE <20.0 (Negative) 15 Tests for antibodies to dsDNA and MICHELLE antigens are not performed automatically unless the NGHIA result is > or = 3.0 U. Studies performed at [facility] indicate that positive NGHIA results <3.0 U are rarely accompanied by positive second order tests. Test Performed by: [facility] [place] [address] 16 Because ethnic data is not always [...] VALUE <=1.0 (Negative) 22 Test Performed by: [facility] [address] [place] [id number] Procedures Description No Information Available Medical Devices Description No Information Available Encounters Type Date Location Provider Dx Diagnosis Office Visit 01/21/2019 Haylee Kurtz K52.29 Other allergic and 2:00p Fenstermacher, dietetic gastroenteritis RPA-C and colitis Assessments Date Code Description Provider 01/21/2019 K52.29 Other allergic and dietetic Tangela Wheeler RPA-C gastroenteritis and colitis Plan of Treatment Future Appointment(s):02/18/2019 3:00 pm - MARSHALL Sinclair at [facility]201/21/2019 - Tangela Wheeler, [facility]-CK52.29 Other allergic and dietetic gastroenteritis and colitisComments:Patient with history of joint pain, muscle weakness and post prandial urgency. Patient is concerned about food allergies. I will have patient hold her Labetalol and return for food allergy testing. Sheshould continue strict avoidance of cow's milk, beef and dairy, as these foods are known to exacerbate her joint pain and gastrointestinal symptoms.Follow up:Next available - Food skin testing with discussion to follow. Patient instructed to hold her Labetalol the day of her testing. Functional Status Description No Information Available Mental Status Description No Information Available Referrals Description No Information Available
[2019-03-05 16:33] VITALS: BP 130/91
--- NOTE | 2019-03-05 16:46 | UC ---
Abdominal Pain Female HPI - HPI Summary HPI Summary: 38-year-old woman comes in with a chief complaint of right-sided abdominal pain. Started 6 days ago. Tenderness on the right side of the abdomen. Proximally at the line of the umbilicus. Did have chills a couple of days into the pain not sure if she had a fever. Does have decreased appetite. Pains increasing over the course of several days. Patient's had a tubal ligation. Still has her gallbladder still has her appendix. Pain is worse with movement. She's been having diarrhea. - History of Current Complaint Chief Complaint: UCAbdominalPain Stated Complaint: LOWER RT ABD PAIN Time Seen by Provider: 03/05/19 16:26 Hx Last Menstrual Period: 10/2017 Pain Intensity: 7 Allergies/Adverse Reactions: Allergies Allergy/AdvReac Type Severity Reaction Status Date / Time aspirin Allergy Severe ANAPHYLACTI Verified 03/05/19 16:33 C NSAIDS (Non-Steroidal Allergy Severe Anaphylatic Verified 03/05/19 16:33 Anti-Inflamma Shock latex Allergy Intermediate SKIN Verified 03/05/19 16:33 BLISTERS AND PEELS caffeine Allergy STOMACH Verified 03/05/19 16:33 ISSUES Perfume [Fragrance] Allergy BREATHING Verified 03/05/19 16:33 ISSUES CLORAPREP AdvReac Severe RED AND Uncoded 03/05/19 16:33 RASH - LARGE AREA OF USE - SEVERE BURING Home Medications: Home Medications Labetalol TAB* [Trandate TAB*] 400 mg PO BID 03/05/19 [History Confirmed ] Sertraline* [Zoloft*] 1 tab PO BEDTIME 03/05/19 [History Confirmed 03/05/19] PMH/Surg Hx/FS Hx/Imm Hx Previously Healthy: Yes Cardiovascular History: Hypertension Respiratory History: Asthma Other History Of: Negative For: HIV, Hepatitis B - Surgical History Surgical History: Yes Surgery Procedure, Year, and Place: BREAST CYSTS (LEFT BREAST). OVARIAN TUBAL 2006. REVERSAL OF TUBAL 2013. MEDIASTINOSCOPY 2013. COLONOSCOPY AND EGD ([facility] [place]) . LT WRIST - TENDON RELEASE 2017 - Family History Known Family History: Positive: Cardiac Disease, Hypertension - mother Negative: Diabetes, Respiratory Disease, Seizure Disorder Family History: dyslipidemia - Social History Alcohol Use: None Substance Use Type: None Smoking Status (MU): Former Smoker Amount Used/How Often: 1/2 - 1 PPD X 1.5 YEARS Have You Smoked in the Last Year: No When Did the Patient Quit Smoking/Using Tobacco: 9 YEARS AGO - Immunization History Most Recent Influenza Vaccination: 2018 Most Recent Tetanus Shot: 02/22/14 Most Recent Pneumonia Vaccination: none Review of Systems All Other Systems Reviewed And Are Negative: Yes Constitutional: Positive: Other - SEE HPI Skin: Positive: Negative Eyes: Positive: Negative ENT: Positive: Negative Respiratory: Positive: Negative Cardiovascular: Positive: Negative Gastrointestinal: Positive: Abdominal Pain, Diarrhea, Nausea, Other - SEE HPI Genitourinary: Positive: Negative Motor: Positive: Negative Neurovascular: Positive: Negative Musculoskeletal: Positive: Negative Neurological: Positive: Negative Psychological: Positive: Negative Is Patient Immunocompromised?: No Physical Exam Triage Information Reviewed: Yes Appearance: Well-Appearing, Well-Nourished, Pain Distress - MILD AT REST. Vital Signs: Initial Vital Signs Temp 97.6 F 03/05/19 16:21 Pulse 71 03/05/19 16:21 Resp 17 03/05/19 16:21 BP 130/91 03/05/19 16:21 Pulse Ox 98 03/05/19 16:21 Vital Signs Reviewed: Yes Eye Exam: Normal Eyes: Positive: Conjunctiva Clear Neck: Positive: Supple Respiratory: Positive: Lungs clear, Normal breath sounds, No respiratory distress Cardiovascular: Positive: RRR Abdomen Description: Positive: Other: - Tender to palpation right side of the abdomen. Patient is tender in the right lower quadrant but the tenderness is worse in the right upper quadrant. Positive heelstrike positive obturator sign.. Negative: CVA Tenderness (R), CVA Tenderness (L) Bowel Sounds: Positive: Hypoactive Musculoskeletal: Positive: Strength Intact, ROM Intact Neurological: Positive: Alert, Muscle Tone Normal Psychological: Positive: Age Appropriate Behavior Skin Exam: Normal Abd Pain Female Course/Dx - Course Course Of Treatment: I recommended further evaluation emergency department. Patient prefers to go by POV. - Differential Dx/Diagnosis Provider Diagnosis: Right sided abdominal pain Discharge ED - Sign-Out/Discharge Documenting (check all that apply): Patient Departure All imaging exams completed and their final reports reviewed: No Studies - Discharge Plan Condition: Stable Disposition: HOME-RECOMMEND TO ED Patient Education Materials: Acute Abdominal Pain (ED) Referrals: Evan Haji MD [Primary Care Provider] - Additional Instructions: GO DIRECTLY TO THE EMERGENCY DEPARTMENT FOR FURTHER EVALUATION OF YOUR RIGHT SIDED ABDOMINAL PAIN. - Billing Disposition and Condition Condition: STABLE Disposition: Home-Recommend to ED
== END 2019-03-05 16:51 | disposition home health service (06) ==
LOC: UCEAST 16:17
DX: R10.31 Right lower quadrant pain (principal); I10 Essential (primary) hypertension; J45.909 Unspecified asthma, uncomplicated; R19.7 Diarrhea, unspecified; R11.0 Nausea; Z88.6 Allergy status to analgesic agent; Z91.040 Latex allergy status; Z91.09 Other allergy status, other than to drugs and biological substances; Z87.891 Personal history of nicotine dependence
CPT/HCPCS: 81003; 84702; 99212; G0463

== ENCOUNTER 2019-03-05 17:11 | Emergency (ER) | payer BC, MEDICAID ==
[2019-03-05 18:07] LABS: ABS Eosinophils 0.1 10^3/ul (0-0.6); ABS Lymphocytes 1.1 10^3/ul (1.0-4.8); ABS Monocytes 0.4 10^3/ul (0-0.8); ABS Neutrophils 3.8 10^3/ul (1.5-7.7); Eosinophil % 1.2 %; Hematocrit 34 % (35-47); Hemoglobin 12.5 g/dL (12.0-16.0); Mean Corpuscular HGB Conc 36 g/dL (31-36); Mean Corpuscular Hemoglobin 34 pg (27-31); Mean Corpuscular Volume 94 fL (80-97); Mean Platelet Volume 7.1 fL (7.4-10.4); Platelet Count 264 10^3/uL (150-450); Red Blood Count 3.63 10^6 /uL (3.70-4.87); Red Cell Distribution Width 13 % (10-15); White Blood Count 5.4 10^3/uL (3.5-10.8)
[2019-03-05 18:22] LABS: ALT 26 U/L (7-52); AST 26 U/L (13-39); Albumin 4.3 g/dL (3.2-5.2); Albumin/Globulin Ratio 1.3 (1-3); Alkaline Phosphatase 90 U/L (34-104); Anion Gap 7 mmol/L (2-11); BUN/Creatinine Ratio 18.3 (8-20); Blood Urea Nitrogen 15 mg/dL (6-24); CO2 Carbon Dioxide 25 mmol/L (22-32); Calcium 9.4 mg/dL (8.6-10.3); Chloride 106 mmol/L (101-111); EGFR African American 94.9 (>60); EGFR Non-African American 78.4 (>60); Globulin 3.2 g/dL (2-4); Glucose 83 mg/dL (70-100); Potassium 4.2 mmol/L (3.5-5.0); Sodium 138 mmol/L (135-145); Total Protein 7.5 g/dL (6.4-8.9)
[2019-03-05 18:27] LABS: HCG Pregnancy < 0.60 mIU/mL
--- NOTE | 2019-03-05 20:41 | ED ---
Abdominal Pain/Female - HPI Summary HPI Summary: 38-year-old female with significant past medical history of anxiety, hypertension, sarcoidosis presents the emergency department today complaining of right upper quadrant abdominal pain 1 week. She states her pain is a 6 out of 10 aching pain in her right upper quadrant and sometimes feels like a burning In her epigastrium. She states her pain is worse after eating and she has had increased gas. She also endorses nausea but no vomiting or diarrhea. She denies fevers. She states her bowel movements have been "green and bright orange". She states she has a family history of "gallbladder problems". She denies fever, chest pain, shortness of breath, pain with urination, rash. - History of Current Complaint Chief Complaint: EDAbdPain Stated Complaint: LOWER RT QUADRANT PAIN PER PT Time Seen by Provider: 03/05/19 20:31 Hx Obtained From: Patient Hx Last Menstrual Period: 10/2017 Onset/Duration: Gradual Onset, Lasting Days Timing: Constant Severity Initially: Moderate Severity Currently: Moderate Pain Intensity: 6 Pain Scale Used: 0-10 Numeric Location: Discrete At: RUQ Character: Cramping Aggravating Factor(s): Food Associated Signs and Symptoms: Negative: Diaphoresis, Fever, Cough, Chest Pain, Back Pain, Blood in Stool, Urinary Symptoms, Decreased Appetite, Vaginal Bleeding, Nausea, Vomiting, Diarrhea Allergies/Adverse Reactions: Allergies Allergy/AdvReac Type Severity Reaction Status Date / Time aspirin Allergy Severe ANAPHYLACTI Verified 03/05/19 16:33 C NSAIDS (Non-Steroidal Allergy Severe Anaphylatic Verified 03/05/19 16:33 Anti-Inflamma Shock latex Allergy Intermediate SKIN Verified 03/05/19 16:33 BLISTERS AND PEELS caffeine Allergy STOMACH Verified 03/05/19 16:33 ISSUES Perfume [Fragrance] Allergy BREATHING Verified 03/05/19 16:33 ISSUES CLORAPREP AdvReac Severe RED AND Uncoded 03/05/19 16:33 RASH - LARGE AREA OF USE - SEVERE BURING PMH/Surg Hx/FS Hx/Imm Hx Endocrine/Hematology History: Denies: Hx Diabetes, Hx Thyroid Disease - ENLARGED Cardiovascular History: Reports: Hx Hypertension - SINCE LAST PREG, Other Cardiovascular Problems/Disorders - SARCOIDOSIS Denies: Hx Pacemaker/ICD Respiratory History: Reports: Hx Asthma - Takes Symbicort, Hx Sleep Apnea, Other Respiratory Problems/Disorders - SARCOIDOSIS Denies: Hx Chronic Obstructive Pulmonary Disease (COPD) GI History: Reports: Hx Hiatal Hernia - PRN MEDICATION FOR, Hx Irritable Bowel Denies: Hx Ulcer History: Reports: Hx Kidney Stones - WHEN YOUNGER X 1, Other Problems/ Disorders - kidney stones Denies: Hx Dialysis, Hx Renal Disease Musculoskeletal History: Reports: Hx Arthritis - SARCOID INDUCED Sensory History: Reports: Hx Contacts or Glasses - GLASSES Denies: Hx Hearing Aid Opthamlomology History: Reports: Hx Contacts or Glasses - GLASSES Neurological History: Reports: Hx Migraine - HX OF- NONE IN THE PAST 2 YEARS Psychiatric History: Reports: Hx Anxiety - SINCE A TEEN, Hx Panic Disorder - ANXIETY - Surgical History Surgery Procedure, Year, and Place: BREAST CYSTS (LEFT BREAST). OVARIAN TUBAL 2006. REVERSAL OF TUBAL 2013. MEDIASTINOSCOPY 2013. [place] [place] . LT WRIST - TENDON RELEASE 2018 Hx Anesthesia Reactions: No Infectious Disease History: No Infectious Disease History: Denies: Hx Clostridium Difficile, Hx Hepatitis, Hx Human Immunodeficiency Virus (HIV), Hx of Known/Suspected MRSA, Hx Shingles, Hx Tuberculosis, Hx Known/ Suspected VRE, Hx Known/Suspected VRSA, History Other Infectious Disease, Traveled Outside the [place] in Last 30 Days - Family History Known Family History: Positive: Cardiac Disease, Hypertension - mother Negative: Diabetes, Respiratory Disease, Seizure Disorder Family History: dyslipidemia - Social History Alcohol Use: None Hx Substance Use: No Substance Use Type: Reports: None Hx Tobacco Use: No Smoking Status (MU): Former Smoker Amount Used/How Often: 1/2 - 1 PPD X 1.5 YEARS Have You Smoked in the Last Year: No Review of Systems Constitutional: Negative Eyes: Negative ENT: Negative Cardiovascular: Negative Respiratory: Negative Positive: Abdominal Pain, Nausea Genitourinary: Negative Musculoskeletal: Negative Skin: Negative Neurological: Negative Psychological: Normal All Other Systems Reviewed And Are Negative: Yes Physical Exam - Summary Physical Exam Summary: Inspection reveals no ecchymosis or masses to the abdomen. Auscultation reveals normoactive bowel sounds. Patient has tenderness with palpation the right upper quadrant. Negative psoas, obturator, Rovsing, McBurney's, Pina's sign. Triage Information Reviewed: Yes Vital Signs On Initial Exam: Initial Vitals Temp Pulse Resp BP Pulse Ox 97.8 F 81 16 147/95 98 03/05/19 17:15 03/05/19 17:15 03/05/19 17:15 03/05/19 17:15 03/05/19 17:15 Vital Signs Reviewed: Yes Appearance: Positive: Well-Appearing, No Pain Distress, Well-Nourished Skin: Positive: Warm, Skin Color Reflects Adequate Perfusion Eyes: Positive: EOMI, LALI ENT: Positive: Hearing grossly normal Respiratory/Lung Sounds: Positive: Clear to Auscultation, Breath Sounds Present Cardiovascular: Positive: RRR, S1, S2 Abdomen Description: Positive: Soft Bowel Sounds: Positive: Present Musculoskeletal: Positive: Normal, Strength/ROM Intact Neurological: Positive: Sensory/Motor Intact, Alert, Oriented to Person Place, Time, Normal Gait, Speech Normal Psychiatric: Positive: Normal AVPU Assessment: Alert Procedures - Sedation Patient Received Moderate/Deep Sedation with Procedure: No Diagnostics - Vital Signs Vital Signs Temp Pulse Resp BP Pulse Ox 03/05/19 19:15 97.9 F 69 18 130/77 97 03/05/19 17:15 97.8 F 81 16 147/95 98 - Laboratory Lab Results: Lab Results 03/05/19 03/05/19 03/05/19 Range/Units 17:55 17:55 17:55 WBC 5.4 (3.5-10.8) 10^3/uL RBC 3.63 L (3.70-4.87) 10^6 /uL Hgb 12.5 (12.0-16.0) g/dL Hct 34 L (35-47) % MCV 94 (80-97) fL MCH 34 H (27-31) pg MCHC 36 (31-36) g/dL RDW 13 (10-15) % Plt Count 264 (150-450) 10^3/uL MPV 7.1 L (7.4-10.4) fL Neut % (Auto) 70.0 % Lymph % (Auto) 20.0 % [place] % (Auto) 8.0 % Eos % (Auto) 1.2 % Baso % (Auto) 0.8 % Absolute Neuts (auto) 3.8 (1.5-7.7) 10^3/ul Absolute Lymphs (auto) 1.1 (1.0-4.8) 10^3/ul Absolute Monos (auto) 0.4 (0-0.8) 10^3/ul Absolute Eos (auto) 0.1 (0-0.6) 10^3/ul Absolute Basos (auto) 0.0 (0-0.2) 10^3/ul Absolute Nucleated RBC 0.0 10^3/ul Nucleated RBC % 0.0 Sodium 138 (135-145) mmol/L Potassium 4.2 (3.5-5.0) mmol/L Chloride 106 (101-111) mmol/L Carbon Dioxide 25 (22-32) mmol/L Anion Gap 7 (2-11) mmol/L BUN 15 (6-24) mg/dL Creatinine 0.82 (0.51-0.95) mg/dL Est GFR ( Amer) 94.9 (>60) Est GFR (Non-Af Amer) 78.4 (>60) BUN/Creatinine Ratio 18.3 (8-20) Glucose 83 (70-100) mg/dL Lactic Acid 0.4 L (0.5-2.0) mmol/L Calcium 9.4 (8.6-10.3) mg/dL Total Bilirubin 0.50 (0.2-1.0) mg/dL AST 26 (13-39) U/L ALT 26 (7-52) U/L Alkaline Phosphatase 90 (34-104) U/L C-Reactive Protein 5.30 (<8.01) mg/L Total Protein 7.5 (6.4-8.9) g/dL Albumin 4.3 (3.2-5.2) g/dL Globulin 3.2 (2-4) g/dL Albumin/Globulin Ratio 1.3 (1-3) Lipase 63 (11.0-82.0) U/L Beta HCG, Quant < 0.60 mIU/mL Result Diagrams: 03/05/19 17:55 03/05/19 17:55 Lab Statement: Any lab studies that have been ordered have been reviewed, and results considered in the medical decision making process. Abdominal Pain Fem Course/Dx - Course Course Of Treatment: Patient was evaluated in the emergency department for abdominal pain. She is seen and examined her vitals were stable and she is afebrile. Labs returned within normal limits no evidence of leukocytosis, anemia, electrolyte abnormalities, elevation in lipase or beta-hCG. Gallbladder ultrasound was done which showed no acute findings including gallstones. It was determined no acute pathology requiring intervention at this time was causing her symptoms. She was told to follow-up with her primary care provider for further evaluation and management of her symptoms. She was told to return to the emergency department immediately if she developed any new or worsening symptoms. - Diagnoses Differential Diagnosis: Positive: Appendicitis, Constipation, Diverticulitis, Gall Bladder Disease, Ovarian Cyst, Renal Colic, Urinary Tract Infection Provider Diagnoses: Abdominal pain Discharge ED - Sign-Out/Discharge Documenting (check all that apply): Patient Departure - Discharge Plan Condition: Stable Disposition: HOME Patient Education Materials: Acute Abdominal Pain (ED) Referrals: Evan Haji MD [Primary Care Provider] - 1 Day Additional Instructions: You were seen in the emergency department for abdominal pain. Laboratory studies as well as an ultrasound were done and revealed no evidence of acute infectious pathology or gallbladder dysfunction. I'm unsure what is causing your abdominal pain however it appears to be no acute medical problem requiring intervention at this time. Please follow up with your primary care provider for further evaluation and management of your symptoms. Please return to emergency department immediately if you develop any new or worsening symptoms. - Billing Disposition and Condition Condition: STABLE Disposition: Home
[2019-03-05 23:47] VITALS: BP 122/82
== END 2019-03-05 23:45 | disposition home or self-care (01) ==
LOC: ED 17:11
DX: R10.9 Unspecified abdominal pain (principal); I10 Essential (primary) hypertension; J45.909 Unspecified asthma, uncomplicated; D86.9 Sarcoidosis, unspecified; F41.9 Anxiety disorder, unspecified; F41.0 Panic disorder [episodic paroxysmal anxiety]; Z87.891 Personal history of nicotine dependence; Z88.8 Allergy status to other drugs, medicaments and biological substances; Z91.040 Latex allergy status
CPT/HCPCS: 36415; 76705; 80053; 83605; 83690; 84702; 85025; 86140; 99283